=== PATIENT | male | born 1945 | race Two or more races ===

== ENCOUNTER → 2017-07-05 14:24 | Outpatient (CLI) | payer MEDICARE, OTHER, SELFPAY | PROVIDERS: Visit Provider Dermatology | DX: L98.499 Non-pressure chronic ulcer of skin of other sites with unspecified severity (principal); L90.6 Striae atrophicae | CPT/HCPCS: 87070; 87077; 87186; 87205 ==

== ENCOUNTER 2017-08-10 12:15 | Outpatient (RCR) | payer MEDICARE, OTHER, SELFPAY ==
[2017-07-13 12:52] VITALS: BP 130/69; PULSE 111; RESP 18; TEMP 36.2; BMI 42.6
[2017-07-13 14:54] LABS: Hematocrit 40.7 % (40-54); Mean Corp Hgb Conc 31.9 g/gl (32-36); Mean Corpuscular Hgb 29.3 pg (27.0-32.0); Mean Corpuscular Volume 91.7 fL (80-94); Mean Platelet Vol. 8.9 fl (6.2-12.0); Platelet Count 188 K/mm3 (150-450); RBC Distribution Width CV 15.7 % (11.6-14.6); RBC Distribution Width SD 52.7 fl (35.1-43.9); Red Blood Count 4.44 M/mm3 (4.6-6.2); White Blood Count 10.2 K/mm3 (4.4-11.0)
[2017-07-13 14:55] LABS: Scan Indicated on CBC? Y/N NO
[2017-07-13 15:00] LABS: Erythrocyte Sedimentation Rate 34 mm/hr (0-20)
[2017-07-13 15:43] LABS: Hemoglobin A1c 7.9 % (4.2-6.3)
[2017-07-13 16:56] LABS: ALB/GLOB Ratio 0.8 RATIO (0.9-2.4); AST(SGOT) 25 U/L (15-37); Alanine Aminotransfer ALT/SGPT 43 U/L (16-61); Albumin, Serum 3.7 g/dL (3.2-5.0); Alkaline Phosphatase 63 U/L (45-117); Anion Gap 4 (5-15); BUN 31 mg/dL (7-18); BUN/Creat Ratio 17.8 RATIO (10-20); Calcium,Total 9.5 mg/dL (8.5-10.1); Chloride 105 mmol/L (98-107); Creatinine, Serum 1.74 mg/dL (0.70-1.30); EST Glomerular Filtration Rate 41 mL/min (>60); Est Glom Filt Rate - Afr Amer 50 mL/min (>60); Estimated Creatinine Clearance 45.27 ml/min; Globulin 4.4 g/dL (2.2-4.2); Glucose 107 mg/dL (74-106); Potassium 4.2 mmol/L (3.5-5.1); Prealbumin 30.3 mg/dL (20.0-40.0); Protein, Total 8.1 g/dL (6.4-8.2); Sodium Level 138 mmol/L (136-145)
--- NOTE | 2017-07-13 19:12 | PCM.WC.HP ---
(1) Intertriginous dermatitis associated with moisture Status: Acute Current Visit: Yes Code(s): L30.4 - Erythema intertrigo (2) Type 2 diabetes mellitus Status: Acute Current Visit: Yes Code(s): E11.9 - Type 2 diabetes mellitus without complications (3) Morbid obesity Status: Acute Current Visit: Yes Code(s): E66.01 - Morbid (severe) obesity due to excess calories (4) Skin ulcer of abdominal wall with fat layer exposed Status: Acute Current Visit: Yes Code(s): L98.492 - Non-pressure chronic ulcer of skin of other sites with fat layer exposed History of Present Illness Date of Service: 07/13/17 Chief Complaint: Abdominal wall ulcers History of Wound: Mr. Moura is a 71yo with past medical history as stated above who was referred to the wound center by his fudger due to nonhealing abdominal wound/ulcers. Initial episode was said to be about 18 months ago and he has progressively had recurrent ulcers and some episodes of cellulitis. He has been applying cortisone cream and sprays to the area as recommended however no significant improvement. There is significant tenderness around the ulcers. He denies any discharge. Also has a sense of the most prominent between the abdominal folds. He feels well otherwise and denies chills, fever, loss of appetite, nausea, vomiting or change in his bowel habit. Past Medical History Allergies/Adverse Reactions: Allergies warfarin [From Coumadin] Allergy (Verified 07/13/17 13:05) Other Home Medications: Ambulatory Orders Medication Instructions Recorded Aspirin 81 mg PO DAILY 07/13/17 Atorvastatin Calcium 40 mg PO DAILY 07/13/17 Calcium Carbonate/Vitamin D3 4 each PO DAILY 07/13/17 [Calcium 500 mg Chewable Tablet] Cholecalciferol (Vitamin D3) 6,000 unit PO DAILY 07/13/17 [D3-2000] Cilostazol 100 mg PO BID 07/13/17 Duloxetine HCl 30 mg PO DAILY 07/13/17 Fenofibrate [Tricor] 145 mg PO DAILY 07/13/17 Iron,Carbonyl [Iron Chews] 65 mg PO BID 07/13/17 Isosorbide Mononitrate [Imdur] 30 mg PO DAILY 07/13/17 Levothyroxine [Synthroid] 100 mcg PO DAILY 07/13/17 Lisinopril [Prinivil] 10 mg PO DAILY 07/13/17 M-17/Nettle/Pumpk/Saw Palmet 3 each PO DAILY 07/13/17 [Prostate Therapy Softgel] Magnesium Oxide [Magnesium] 1,500 mg PO DAILY 07/13/17 Multivitamin [Multiple Vitamins] 1 each PO DAILY 07/13/17 Pantoprazole Sodium [Protonix] 40 mg PO DAILY 07/13/17 Triamcinolone 0.1% Cream [Kenalog] 1 applic TOPICAL QODAY 07/13/17 Vit B12/Levomefolate/Vit B6/B2 1 each PO QWEEK 07/13/17 [l-Methyl-Mc Tablet] Smoking Status: Never smoker Review of Systems Constitutional: Denies: Anorexia, Chills, Fever Eyes: Denies: Blurred vision, Redness HEENT: Denies: Difficulty Swallowing, Head Aches Cardiovascular: Denies: Chest Pain, Chest Pressure, Chest Tightness, Orthopnea Respiratory: Denies: Cough, Hemoptysis Gastrointestinal: Denies: Abdominal Pain, Hematemesis, Vomiting Skin: Denies: Dryness, Jaundice Neurological: Denies: Balance problems - Physical Exam Vital Signs Temp Pulse Resp BP 97.1 F L 111 H 18 130/69 H 07/13/17 12:52 07/13/17 12:52 07/13/17 12:52 07/13/17 12:52 General: Alert, Oriented x3, Cooperative, No apparent distress HEENT: Atraumatic, Normocephalic Oral: Moist Mucosa Neck: Supple Lungs: Normal air movement Cardiovascular: Regular rate Abdomen: Soft, Obese, Tender Extremities: No cyanosis, Edema Skin: Ulcer/ Wound Wound Measurements and Assessment WC - Nurse 1 - General Ulcer Measurement Start: 07/13/17 11:58 Freq: Status: Active Protocol: Activity Type Activity Date Activity User E-Sign Co-Sign Detail Recorded Client Recorded Date Recorded By Document 07/13/17 12:52 RB [id number] 07/13/17 13:02 RB 07/13/17 12:52 Wound Center Nurse 1 [Ulcer Assessment] 5. R abd fold inferior -Combined with other wound No -Current Size (cm) - Length 1.6 -Current Size (cm) - Width 1.6 -Current Size (cm) - Depth 0.1 -Total Square Cm 2.56 -Photo Taken Yes -Tunneling No -Undermining/Tunneling No -Circular Undermining No -Classification - Thickness Full Thickness without Exposed Support Structure -Exudate Amt Small (1-33%) -Exudate Type Serosanguineous -Wound Margin Distinct, Outline Attached -Granulation Amt Large (67-100%) -Granulation Quality Laurium Red -Slough/Fibrin Yes -Necrosis Amt Small (1-33%) -Necrotic Tissue Type Adherent Slough -Structure Exposed N/A -Texture (Nesha-wound Skin Appearance) Assessed Friable -Moisture (Nesha-wound Skin Appearance Assessed ) -Color (Nesha-wound Skin Appearance) Assessed -Temperature (Nesha-wound Skin No Abnormality Appearance) (Pt Warm) -Tenderness on Palpation (Nesha-wound No Skin Appearance) -Ulcer Cleansing Rinsed/ Irrigated with Saline -Foul Odor after Cleansing No -Anesthetic Used 4% Lidocaine Solution 4. R abd fold superior -Combined with other wound No -Current Size (cm) - Length 0.8 -Current Size (cm) - Width 1.1 -Current Size (cm) - Depth 0.3 -Total Square Cm 0.88 -Photo Taken Yes -Tunneling No -Undermining/Tunneling No -Circular Undermining No -Classification - Thickness Full Thickness without Exposed Support Structure -Exudate Amt Small (1-33%) -Exudate Type Serosanguineous -Wound Margin Distinct, Outline Attached -Granulation Amt Large (67-100%) -Granulation Quality Laurium Red -Slough/Fibrin Yes -Necrosis Amt Small (1-33%) -Necrotic Tissue Type Adherent Slough -Structure Exposed N/A -Texture (Nesha-wound Skin Appearance) Assessed Friable -Moisture (Nesha-wound Skin Appearance Assessed ) -Color (Nesha-wound Skin Appearance) Assessed -Temperature (Nesha-wound Skin No Abnormality Appearance) (Pt Warm) -Tenderness on Palpation (Nesha-wound No Skin Appearance) -Ulcer Cleansing Rinsed/ Irrigated with Saline -Foul Odor after Cleansing No -Anesthetic Used 4% Lidocaine Solution 3. R lower abd -Combined with other wound No -Current Size (cm) - Length 2.7 -Current Size (cm) - Width 4.5 -Current Size (cm) - Depth 0.2 -Total Square Cm 12.15 -Photo Taken Yes -Tunneling No -Undermining/Tunneling No -Circular Undermining No -Classification - Thickness Full Thickness without Exposed Support Structure -Exudate Amt Small (1-33%) -Exudate Type Serosanguineous -Wound Margin Distinct, Outline Attached -Granulation Amt Large (67-100%) -Granulation Quality Laurium Red -Slough/Fibrin Yes -Necrosis Amt Small (1-33%) -Necrotic Tissue Type Adherent Slough -Structure Exposed N/A -Texture (Nesha-wound Skin Appearance) Assessed Friable -Moisture (Nesha-wound Skin Appearance Assessed ) -Color (Nesha-wound Skin Appearance) Assessed -Temperature (Nesha-wound Skin No Abnormality Appearance) (Pt Warm) -Tenderness on Palpation (Nesha-wound No Skin Appearance) -Ulcer Cleansing Rinsed/ Irrigated with Saline -Foul Odor after Cleansing No -Anesthetic Used 4% Lidocaine Solution 2. L abd fold -Combined with other wound No -Current Size (cm) - Length 0.2 -Current Size (cm) - Width 0.9 -Current Size (cm) - Depth 0.1 -Total Square Cm 0.18 -Photo Taken Yes -Tunneling No -Undermining/Tunneling No -Circular Undermining No -Classification - Thickness Full Thickness without Exposed Support Structure -Exudate Amt Small (1-33%) -Exudate Type Serosanguineous -Wound Margin Distinct, Outline Attached -Granulation Amt Large (67-100%) -Granulation Quality Laurium -Slough/Fibrin Yes -Necrosis Amt Small (1-33%) -Necrotic Tissue Type Adherent Slough -Structure Exposed N/A -Texture (Nesha-wound Skin Appearance) Assessed -Moisture (Nesha-wound Skin Appearance Assessed ) -Color (Nesha-wound Skin Appearance) Assessed -Temperature (Nesha-wound Skin No Abnormality Appearance) (Pt Warm) -Tenderness on Palpation (Nesha-wound No Skin Appearance) -Ulcer Cleansing Rinsed/ Irrigated with Saline -Foul Odor after Cleansing No -Anesthetic Used 4% Lidocaine Solution 1. L lower abd -Combined with other wound No -Current Size (cm) - Length 1.7 -Current Size (cm) - Width 3 -Current Size (cm) - Depth 0.2 -Total Square Cm 5.1 -Photo Taken Yes -Tunneling No -Undermining/Tunneling No -Circular Undermining No -Classification - Thickness Full Thickness without Exposed Support Structure -Exudate Amt Small (1-33%) -Exudate Type Serosanguineous -Wound Margin Distinct, Outline Attached -Granulation Amt Large (67-100%) -Granulation Quality Laurium -Slough/Fibrin Yes -Necrosis Amt Small (1-33%) -Necrotic Tissue Type Adherent Slough -Structure Exposed N/A -Texture (Nesha-wound Skin Appearance) Assessed Friable -Moisture (Nesha-wound Skin Appearance Assessed ) -Color (Nesha-wound Skin Appearance) Assessed -Temperature (Nesha-wound Skin No Abnormality Appearance) (Pt Warm) -Tenderness on Palpation (Nesha-wound No Skin Appearance) -Ulcer Cleansing Rinsed/ Irrigated with Saline -Foul Odor after Cleansing No -Anesthetic Used 4% Lidocaine Solution Musculoskeletal: No Muscle Wasting Neurological: Cranial nerves II-XII grossly intact Psych/Mental Status: Normal Affect Debridement Note Wound debrided: Right abdomen ( Superior ) Wound Grade/Stage: Stage II Type of Debridement: Excisional debridement Anesthesia Used: 4% Lidocaine Solution Depth: Down to and including healthy tissue, in the subcutaneous layer Percentage of wound debrided: 100 Instrument Used: 5mm curette Tissue Removed: Slough and devitalized tissue Severity: Fat Layer Exposed Amount of bleeding with debridement: Mild Bleeding Controlled with: Pressure Patient tolerated procedure well - Additional Wound Wound debrided: Right abdominal fold ( Lateral ) Wound Grade/Stage: Stage II Type of Debridement: Excisional debridement Anesthesia Used: 4% Lidocaine Solution Depth: Down to and including healthy tissue, in the subcutaneous layer Percentage of wound debrided: 100 Instrument Used: 5mm curette Tissue Removed: Slough and devitalized tissue Severity: Fat Layer Exposed Amount of bleeding with debridement: Mild Bleeding Controlled with: Pressure Patient tolerated procedure: Patient tolerated procedure well - Additional Wound Wound debrided: Right abdominal fold medial Wound Grade/Stage: Stage II Type of Debridement: Excisional debridement Anesthesia Used: 4% Lidocaine Solution Depth: Down to and including healthy tissue, in the subcutaneous layer Percentage of wound debrided: 100 Instrument Used: 5mm curette Tissue Removed: Slough and devitalized tissue Severity: Fat Layer Exposed Amount of bleeding with debridement: Mild Bleeding Controlled with: Pressure Patient tolerated procedure: Patient tolerated procedure well - Additional Wound Wound debrided: Left abdomen wall ( superior ) Wound Grade/Stage: Stage II Type of Debridement: Excisional debridement Anesthesia Used: 4% Lidocaine Solution Depth: Down to and including healthy tissue, in the subcutaneous layer Percentage of wound debrided: 100 Instrument Used: 5mm curette Tissue Removed: SLough and devitalized tissue Severity: Fat Layer Exposed Amount of bleeding with debridement: Mild Bleeding Controlled with: Pressure Patient tolerated procedure: Patient tolerated procedure well - Additional Wound Wound debrided: Left abdominal fold Wound Grade/Stage: Stage II Type of Debridement: Excisional debridement Anesthesia Used: 4% Lidocaine Solution Depth: Down to and including healthy tissue, in the subcutaneous layer Percentage of wound debrided: 100 Instrument Used: 5mm curette Tissue Removed: Slough and devitalized tissue Severity: Fat Layer Exposed Amount of bleeding with debridement: Mild Bleeding Controlled with: Pressure Patient tolerated procedure: Patient tolerated procedure well Assessment/Plan Active Problems Intertriginous dermatitis associated with moisture (Acute) Type 2 diabetes mellitus (Acute) Morbid obesity (Acute) Skin ulcer of abdominal wall with fat layer exposed (Acute) Assessment: As stated above Plan: Mr Moura presents with 5 abdominal ulcers said to have been ongoing 18 months. Has been seen by his fudger and primary care physician without any significant improvement. Referred to the wound center by his fudger. Currently applying cortisone cream. I believe the origin of these ulcers are primarily fungal in nature due to his current body habitus. Debridement of all ulcers were done as documented above. Procedure was well-tolerated. Labs ordered. Patient with very significant tenderness around the ulcers and also areas of dermatitis intertrigo noted. Will start on fluconazole 200 mg daily, doxycycline 100 mg twice daily and Keflex 500 mg twice daily. Nystatin powder to skin surface/skin fold. Advised to avoid the ulcerated areas. Fibracol with Adaptic over top to all ulcerated areas. Optimal blood sugar control. Increase protein supplements/dietary intake. Follow-up in 1 week. This note was generated with [employer] dictation software. It may contain incorrect words, spelling, and punctuation that were not noted in checking the note before signing.
--- NOTE | 2017-07-13 19:25 | HP.PCM_ITS ---
(1) Intertriginous dermatitis associated with moisture Status: Acute Current Visit: Yes Code(s): L30.4 - Erythema intertrigo (2) Type 2 diabetes mellitus Status: Acute Current Visit: Yes Code(s): E11.9 - Type 2 diabetes mellitus without complications (3) Morbid obesity Status: Acute Current Visit: Yes Code(s): E66.01 - Morbid (severe) obesity due to excess calories (4) Skin ulcer of abdominal wall with fat layer exposed Status: Acute Current Visit: Yes Code(s): L98.492 - Non-pressure chronic ulcer of skin of other sites with fat layer exposed History of Present Illness Date of Service: 07/13/17 Chief Complaint: Abdominal wall ulcers History of Wound: Mr. 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 Initial episode was said to be about 18 months ago and he has progressively had recurrent ulcers and some episodes of cellulitis. He has been applying cortisone cream and sprays to the area as recommended however no significant improvement. There is significant tenderness around the ulcers. He denies any discharge. Also has a sense of the most prominent between the abdominal folds. He feels well otherwise and denies chills, fever, loss of appetite, nausea, vomiting or change in his bowel habit. Past Medical History Allergies/Adverse Reactions: Allergies warfarin [From Coumadin] Allergy (Verified 07/13/17 13:05) Other Home Medications: Ambulatory Orders Medication Instructions Recorded Aspirin 81 mg PO DAILY 07/13/17 Atorvastatin Calcium 40 mg PO DAILY 07/13/17 Calcium Carbonate/Vitamin D3 4 each PO DAILY 07/13/17 [Calcium 500 mg Chewable Tablet] Cholecalciferol (Vitamin D3) 6,000 unit PO DAILY 07/13/17 [D3-2000] Cilostazol 100 mg PO BID 07/13/17 Duloxetine HCl 30 mg PO DAILY 07/13/17 Fenofibrate [Tricor] 145 mg PO DAILY 07/13/17 Iron,Carbonyl [Iron Chews] 65 mg PO BID 07/13/17 Isosorbide Mononitrate [Imdur] 30 mg PO DAILY 07/13/17 Levothyroxine [Synthroid] 100 mcg PO DAILY 07/13/17 Lisinopril [Prinivil] 10 mg PO DAILY 07/13/17 M-17/Nettle/Pumpk/Saw Palmet 3 each PO DAILY 07/13/17 [Prostate Therapy Softgel] Magnesium Oxide [Magnesium] 1,500 mg PO DAILY 07/13/17 Multivitamin [Multiple Vitamins] 1 each PO DAILY 07/13/17 Pantoprazole Sodium [Protonix] 40 mg PO DAILY 07/13/17 Triamcinolone 0.1% Cream [Kenalog] 1 applic TOPICAL QODAY 07/13/17 Vit B12/Levomefolate/Vit B6/B2 1 each PO QWEEK 07/13/17 [l-Methyl-Mc Tablet] Smoking Status: Never smoker Review of Systems Constitutional: Denies: Anorexia, Chills, Fever Eyes: Denies: Blurred vision, Redness HEENT: Denies: Difficulty Swallowing, Head Aches Cardiovascular: Denies: Chest Pain, Chest Pressure, Chest Tightness, Orthopnea Respiratory: Denies: Cough, Hemoptysis Gastrointestinal: Denies: Abdominal Pain, Hematemesis, Vomiting Skin: Denies: Dryness, Jaundice Neurological: Denies: Balance problems - Physical Exam Vital Signs Temp Pulse Resp BP 97.1 F L 111 H 18 130/69 H 07/13/17 12:52 07/13/17 12:52 07/13/17 12:52 07/13/17 12:52 General: Alert, Oriented x3, Cooperative, No apparent distress HEENT: Atraumatic, Normocephalic Oral: Moist Mucosa Neck: Supple Lungs: Normal air movement Cardiovascular: Regular rate Abdomen: Soft, Obese, Tender Extremities: No cyanosis, Edema Skin: Ulcer/ Wound Wound Measurements and Assessment WC - Nurse 1 - General Ulcer Measurement Start: 07/13/17 11:58 Freq: Status: Active Protocol: Activity Type Activity Date Activity User E-Sign Co-Sign Detail Recorded Client Recorded Date Recorded By Document 07/13/17 12:52 RB [id number] 07/13/17 13:02 RB 07/13/17 12:52 Wound Center Nurse 1 [Ulcer Assessment] 5. R abd fold inferior -Combined with other wound No -Current Size (cm) - Length 1.6 -Current Size (cm) - Width 1.6 -Current Size (cm) - Depth 0.1 -Total Square Cm 2.56 -Photo Taken Yes -Tunneling No -Undermining/Tunneling No -Circular Undermining No -Classification - Thickness Full Thickness without Exposed Support Structure -Exudate Amt Small (1-33%) -Exudate Type Serosanguineous -Wound Margin Distinct, Outline Attached -Granulation Amt Large (67-100%) -Granulation Quality [place] Red -Slough/Fibrin Yes -Necrosis Amt Small (1-33%) -Necrotic Tissue Type Adherent Slough -Structure Exposed N/A -Texture (Nesha-wound Skin Appearance) Assessed Friable -Moisture (Nesha-wound Skin Appearance Assessed ) -Color (Nesha-wound Skin Appearance) Assessed -Temperature (Nesha-wound Skin No Abnormality Appearance) (Pt Warm) -Tenderness on Palpation (Nesha-wound No Skin Appearance) -Ulcer Cleansing Rinsed/ Irrigated with Saline -Foul Odor after Cleansing No -Anesthetic Used 4% Lidocaine Solution 4. R abd fold superior -Combined with other wound No -Current Size (cm) - Length 0.8 -Current Size (cm) - Width 1.1 -Current Size (cm) - Depth 0.3 -Total Square Cm 0.88 -Photo Taken Yes -Tunneling No -Undermining/Tunneling No -Circular Undermining No -Classification - Thickness Full Thickness without Exposed Support Structure -Exudate Amt Small (1-33%) -Exudate Type Serosanguineous -Wound Margin Distinct, Outline Attached -Granulation Amt Large (67-100%) -Granulation Quality [place] Red -Slough/Fibrin Yes -Necrosis Amt Small (1-33%) -Necrotic Tissue Type Adherent Slough -Structure Exposed N/A -Texture (Nesha-wound Skin Appearance) Assessed Friable -Moisture (Nesha-wound Skin Appearance Assessed ) -Color (Nesha-wound Skin Appearance) Assessed -Temperature (Nesha-wound Skin No Abnormality Appearance) (Pt Warm) -Tenderness on Palpation (Nesha-wound No Skin Appearance) -Ulcer Cleansing Rinsed/ Irrigated with Saline -Foul Odor after Cleansing No -Anesthetic Used 4% Lidocaine Solution 3. R lower abd -Combined with other wound No -Current Size (cm) - Length 2.7 -Current Size (cm) - Width 4.5 -Current Size (cm) - Depth 0.2 -Total Square Cm 12.15 -Photo Taken Yes -Tunneling No -Undermining/Tunneling No -Circular Undermining No -Classification - Thickness Full Thickness without Exposed Support Structure -Exudate Amt Small (1-33%) -Exudate Type Serosanguineous -Wound Margin Distinct, Outline Attached -Granulation Amt Large (67-100%) -Granulation Quality [place] Red -Slough/Fibrin Yes -Necrosis Amt Small (1-33%) -Necrotic Tissue Type Adherent Slough -Structure Exposed N/A -Texture (Nesha-wound Skin Appearance) Assessed Friable -Moisture (Nesha-wound Skin Appearance Assessed ) -Color (Nesha-wound Skin Appearance) Assessed -Temperature (Nesha-wound Skin No Abnormality Appearance) (Pt Warm) -Tenderness on Palpation (Nesha-wound No Skin Appearance) -Ulcer Cleansing Rinsed/ Irrigated with Saline -Foul Odor after Cleansing No -Anesthetic Used 4% Lidocaine Solution 2. L abd fold -Combined with other wound No -Current Size (cm) - Length 0.2 -Current Size (cm) - Width 0.9 -Current Size (cm) - Depth 0.1 -Total Square Cm 0.18 -Photo Taken Yes -Tunneling No -Undermining/Tunneling No -Circular Undermining No -Classification - Thickness Full Thickness without Exposed Support Structure -Exudate Amt Small (1-33%) -Exudate Type Serosanguineous -Wound Margin Distinct, Outline Attached -Granulation Amt Large (67-100%) -Granulation Quality [place] -Slough/Fibrin Yes -Necrosis Amt Small (1-33%) -Necrotic Tissue Type Adherent Slough -Structure Exposed N/A -Texture (Nesha-wound Skin Appearance) Assessed -Moisture (Nesha-wound Skin Appearance Assessed ) -Color (Nesha-wound Skin Appearance) Assessed -Temperature (Nesha-wound Skin No Abnormality Appearance) (Pt Warm) -Tenderness on Palpation (Nesha-wound No Skin Appearance) -Ulcer Cleansing Rinsed/ Irrigated with Saline -Foul Odor after Cleansing No -Anesthetic Used 4% Lidocaine Solution 1. L lower abd -Combined with other wound No -Current Size (cm) - Length 1.7 -Current Size (cm) - Width 3 -Current Size (cm) - Depth 0.2 -Total Square Cm 5.1 -Photo Taken Yes -Tunneling No -Undermining/Tunneling No -Circular Undermining No -Classification - Thickness Full Thickness without Exposed Support Structure -Exudate Amt Small (1-33%) -Exudate Type Serosanguineous -Wound Margin Distinct, Outline Attached -Granulation Amt Large (67-100%) -Granulation Quality [place] -Slough/Fibrin Yes -Necrosis Amt Small (1-33%) -Necrotic Tissue Type Adherent Slough -Structure Exposed N/A -Texture (Nesha-wound Skin Appearance) Assessed Friable -Moisture (Nesha-wound Skin Appearance Assessed ) -Color (Nesha-wound Skin Appearance) Assessed -Temperature (Nesha-wound Skin No Abnormality Appearance) (Pt Warm) -Tenderness on Palpation (Nesha-wound No Skin Appearance) -Ulcer Cleansing Rinsed/ Irrigated with Saline -Foul Odor after Cleansing No -Anesthetic Used 4% Lidocaine Solution Musculoskeletal: No Muscle Wasting Neurological: Cranial nerves II-XII grossly intact Psych/Mental Status: Normal Affect Debridement Note Wound debrided: Right abdomen ( Superior ) Wound Grade/Stage: Stage II Type of Debridement: Excisional debridement Anesthesia Used: 4% Lidocaine Solution Depth: Down to and including healthy tissue, in the subcutaneous layer Percentage of wound debrided: 100 Instrument Used: 5mm curette Tissue Removed: Slough and devitalized tissue Severity: Fat Layer Exposed Amount of bleeding with debridement: Mild Bleeding Controlled with: Pressure Patient tolerated procedure well - Additional Wound Wound debrided: Right abdominal fold ( Lateral ) Wound Grade/Stage: Stage II Type of Debridement: Excisional debridement Anesthesia Used: 4% Lidocaine Solution Depth: Down to and including healthy tissue, in the subcutaneous layer Percentage of wound debrided: 100 Instrument Used: 5mm curette Tissue Removed: Slough and devitalized tissue Severity: Fat Layer Exposed Amount of bleeding with debridement: Mild Bleeding Controlled with: Pressure Patient tolerated procedure: Patient tolerated procedure well - Additional Wound Wound debrided: Right abdominal fold medial Wound Grade/Stage: Stage II Type of Debridement: Excisional debridement Anesthesia Used: 4% Lidocaine Solution Depth: Down to and including healthy tissue, in the subcutaneous layer Percentage of wound debrided: 100 Instrument Used: 5mm curette Tissue Removed: Slough and devitalized tissue Severity: Fat Layer Exposed Amount of bleeding with debridement: Mild Bleeding Controlled with: Pressure Patient tolerated procedure: Patient tolerated procedure well - Additional Wound Wound debrided: Left abdomen wall ( superior ) Wound Grade/Stage: Stage II Type of Debridement: Excisional debridement Anesthesia Used: 4% Lidocaine Solution Depth: Down to and including healthy tissue, in the subcutaneous layer Percentage of wound debrided: 100 Instrument Used: 5mm curette Tissue Removed: SLough and devitalized tissue Severity: Fat Layer Exposed Amount of bleeding with debridement: Mild Bleeding Controlled with: Pressure Patient tolerated procedure: Patient tolerated procedure well - Additional Wound Wound debrided: Left abdominal fold Wound Grade/Stage: Stage II Type of Debridement: Excisional debridement Anesthesia Used: 4% Lidocaine Solution Depth: Down to and including healthy tissue, in the subcutaneous layer Percentage of wound debrided: 100 Instrument Used: 5mm curette Tissue Removed: Slough and devitalized tissue Severity: Fat Layer Exposed Amount of bleeding with debridement: Mild Bleeding Controlled with: Pressure Patient tolerated procedure: Patient tolerated procedure well Assessment/Plan Active Problems Intertriginous dermatitis associated with moisture (Acute) Type 2 diabetes mellitus (Acute) Morbid obesity (Acute) Skin ulcer of abdominal wall with fat layer exposed (Acute) Assessment: As stated above Plan: Mr Moura presents with 5 abdominal ulcers said to have been ongoing 18 months. Has been seen by his car installations supervisor and primary care physician without any significant improvement. Referred to the wound center by his car installations supervisor. Currently applying cortisone cream. I believe the origin of these ulcers are primarily fungal in nature due to his current body habitus. Debridement of all ulcers were done as documented above. Procedure was well- tolerated. Labs ordered. Patient with very significant tenderness around the ulcers and also areas of dermatitis intertrigo noted. Will start on fluconazole 200 mg daily, doxycycline 100 mg twice daily and Keflex 500 mg twice daily. Nystatin powder to skin surface/skin fold. Advised to avoid the ulcerated areas. Fibracol with Adaptic over top to all ulcerated areas. Optimal blood sugar control. Increase protein supplements/dietary intake. Follow-up in 1 week. This note was generated with [employer] dictation software. It may contain incorrect words, spelling, and punctuation that were not noted in checking the note before signing.
[2017-07-20 11:39] VITALS: BP 147/82; PULSE 102; RESP 18; TEMP 36.2; BMI 42.6
--- NOTE | 2017-07-20 16:42 | PCM.WC.PN ---
(1) Intertriginous dermatitis associated with moisture Status: Acute Current Visit: Yes Code(s): L30.4 - Erythema intertrigo (2) Type 2 diabetes mellitus Status: Acute Current Visit: Yes Code(s): E11.9 - Type 2 diabetes mellitus without complications (3) Morbid obesity Status: Acute Current Visit: Yes Code(s): E66.01 - Morbid (severe) obesity due to excess calories (4) Skin ulcer of abdominal wall with fat layer exposed Status: Acute Current Visit: Yes Code(s): L98.492 - Non-pressure chronic ulcer of skin of other sites with fat layer exposed Type of Wound Date of Service: 07/20/17 Chief Complaint: Abdominal wall ulcers History of Wound: Mr. 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 Initial episode was said to be about 18 months ago and he has progressively had recurrent ulcers and some episodes of cellulitis. He has been applying cortisone cream and sprays to the area as recommended however no significant improvement. There is significant tenderness around the ulcers. He denies any discharge. Also has a sense of the most prominent between the abdominal folds. He feels well otherwise and denies chills, fever, loss of appetite, nausea, vomiting or change in his bowel habit. Progress of Wound: Improving. - Physical Exam Vital Signs Temp Pulse Resp BP 97.1 F L 102 H 18 147/82 H 07/20/17 11:39 07/20/17 11:39 07/20/17 11:39 07/20/17 11:39 General: Alert, Oriented x3, Cooperative, No apparent distress HEENT: Atraumatic, Normocephalic Oral: Moist Mucosa Neck: Supple Lungs: Normal air movement Cardiovascular: Tachycardic Abdomen: Soft, Non Tender, Obese Extremities: No cyanosis Skin: Ulcer/ Wound Wound Measurements and Assessment WC - Nurse 1 - General Ulcer Measurement Start: 07/13/17 11:58 Freq: Status: Active Protocol: Activity Type Activity Date Activity User E-Sign Co-Sign Detail Recorded Client Recorded Date Recorded By Document 07/20/17 11:39 TN [id number] 07/20/17 11:57 TN 07/20/17 11:39 Wound Center Nurse 1 [Ulcer Assessment] #5 RT LATERAL ABDOMINAL FOLD -Combined with other wound No -Current Size (cm) - Length 0.6 -Current Size (cm) - Width 1.4 -Current Size (cm) - Depth 0.1 -Total Square Cm 0.84 -Photo Taken No -Epithelialization Large 67-100% -Tunneling No -Undermining/Tunneling No -Circular Undermining No -Classification - Thickness Full Thickness without Exposed Support Structure -Change in Wound Grade/Stage No Query Text:If change please identify the Stage/Grade in the comment (ie. S2 G3) -Exudate Amt Medium (34-66%) -Exudate Type Serosanguineous -Wound Margin Distinct, Outline Attached -Granulation Amt Large (67-100%) -Granulation Quality Hyper- granulation -Slough/Fibrin No -Necrosis Amt Small (1-33%) -Necrotic Tissue Type Adherent Slough -Structure Exposed None/Limited to Skin Breakdown -Texture (Nesha-wound Skin Appearance) Assessed Scarring -Moisture (Nesha-wound Skin Appearance No Abnormality ) Assessed -Color (Nesha-wound Skin Appearance) No Abnormality Assessed -Temperature (Nesha-wound Skin No Abnormality Appearance) (Pt Warm) -Tenderness on Palpation (Nesha-wound No Skin Appearance) -Ulcer Cleansing Rinsed/ Irrigated with Saline -Foul Odor after Cleansing No -Anesthetic Used 4% Lidocaine Solution #4 RT MEDIAL ABDOMINAL FOLD -Combined with other wound No -Current Size (cm) - Length 0.8 -Current Size (cm) - Width 0.9 -Current Size (cm) - Depth 0.2 -Total Square Cm 0.72 -Photo Taken No -Epithelialization Small 1-33% -Tunneling No -Undermining/Tunneling No -Circular Undermining No -Classification - Thickness Full Thickness without Exposed Support Structure -Change in Wound Grade/Stage No Query Text:If change please identify the Stage/Grade in the comment (ie. S2 G3) -Exudate Amt Medium (34-66%) -Exudate Type Serosanguineous -Wound Margin Distinct, Outline Attached -Granulation Amt Large (67-100%) -Granulation Quality Red -Necrosis Amt Small (1-33%) -Necrotic Tissue Type Adherent Slough -Structure Exposed None/Limited to Skin Breakdown -Texture (Nesha-wound Skin Appearance) Assessed Scarring -Moisture (Nesha-wound Skin Appearance No Abnormality ) Assessed -Color (Nesha-wound Skin Appearance) Assessed Erythema -Temperature (Nesha-wound Skin No Abnormality Appearance) (Pt Warm) -Tenderness on Palpation (Nesha-wound No Skin Appearance) -Ulcer Cleansing Rinsed/ Irrigated with Saline -Foul Odor after Cleansing No -Anesthetic Used 4% Lidocaine Solution #3 RLQ -Combined with other wound No -Current Size (cm) - Length 2.2 -Current Size (cm) - Width 4.6 -Current Size (cm) - Depth 0.1 -Total Square Cm 10.12 -Photo Taken No -Epithelialization Small 1-33% -Tunneling No -Undermining/Tunneling No -Circular Undermining No -Classification - Thickness Full Thickness without Exposed Support Structure -Change in Wound Grade/Stage No Query Text:If change please identify the Stage/Grade in the comment (ie. S2 G3) -Exudate Amt Medium (34-66%) -Exudate Type Serosanguineous -Wound Margin Distinct, Outline Attached -Granulation Amt Medium (34-66%) -Granulation Quality Red -Slough/Fibrin Yes -Necrosis Amt Small (1-33%) -Necrotic Tissue Type Adherent Slough -Structure Exposed None/Limited to Skin Breakdown -Texture (Nesha-wound Skin Appearance) Assessed Scarring -Moisture (Nesha-wound Skin Appearance No Abnormality ) Assessed -Color (Nesha-wound Skin Appearance) Assessed Erythema -Temperature (Nesha-wound Skin No Abnormality Appearance) (Pt Warm) -Tenderness on Palpation (Nesha-wound No Skin Appearance) -Ulcer Cleansing Rinsed/ Irrigated with Saline -Foul Odor after Cleansing No -Anesthetic Used 4% Lidocaine Solution #2 LEFT ABDOMINAL FOLD -Combined with other wound No -Current Size (cm) - Length 0.1 -Current Size (cm) - Width 0.1 -Current Size (cm) - Depth 0.1 -Total Square Cm 0.01 -Photo Taken No -Epithelialization None Present -Tunneling No -Undermining/Tunneling No -Circular Undermining No -Classification - Thickness Full Thickness without Exposed Support Structure -Change in Wound Grade/Stage No Query Text:If change please identify the Stage/Grade in the comment (ie. S2 G3) -Exudate Amt None Present (0 %) -Granulation Amt None Present (0 %) -Necrosis Amt None Present (0 %) -Texture (Nesha-wound Skin Appearance) No Abnormality Assessed -Moisture (Nesha-wound Skin Appearance No Abnormality ) Assessed -Color (Nesha-wound Skin Appearance) No Abnormality Not Assessed -Temperature (Nesha-wound Skin No Abnormality Appearance) (Pt Warm) -Tenderness on Palpation (Nesha-wound No Skin Appearance) -Ulcer Cleansing Rinsed/ Irrigated with Saline -Anesthetic Used 4% Lidocaine Solution #1 LLQ -Combined with other wound No -Current Size (cm) - Length 1.6 -Current Size (cm) - Width 2.5 -Current Size (cm) - Depth 0.2 -Total Square Cm 4.00 -Photo Taken No -Epithelialization None Present -Tunneling No -Undermining/Tunneling Yes -Undermining/Tunneling Starts (O' 7 clock) -Undermining/Tunneling Ends (O'clock) 11 -Maximum Distance (cm) 0.3 -Circular Undermining No -Classification - Thickness Full Thickness without Exposed Support Structure -Change in Wound Grade/Stage No Query Text:If change please identify the Stage/Grade in the comment (ie. S2 G3) -Exudate Amt Large (67-100%) -Exudate Type Serosanguineous -Wound Margin Distinct, Outline Attached -Granulation Amt Large (67-100%) -Granulation Quality Red -Slough/Fibrin Yes -Necrosis Amt Small (1-33%) -Necrotic Tissue Type Adherent Slough -Structure Exposed None/Limited to Skin Breakdown -Texture (Nesha-wound Skin Appearance) No Abnormality Assessed -Moisture (Nesha-wound Skin Appearance No Abnormality ) Assessed -Color (Nesha-wound Skin Appearance) No Abnormality Assessed -Temperature (Nesha-wound Skin No Abnormality Appearance) (Pt Warm) -Tenderness on Palpation (Nesha-wound No Skin Appearance) -Ulcer Cleansing Rinsed/ Irrigated with Saline -Foul Odor after Cleansing No -Anesthetic Used 4% Lidocaine Solution [Edema Assessment] -Lower Limb Edema Present No WC - Nurse 2 - General Ulcer CM Notes Start: 07/13/17 11:58 Freq: Status: Active Protocol: Activity Type Activity Date Activity User E-Sign Co-Sign Detail Recorded Client Recorded Date Recorded By Document 07/20/17 12:53 DV [id number] 07/20/17 12:58 DV 07/20/17 12:53 Wound Center Nurse 2 [Procedure/Treatment] #5 RT LATERAL ABDOMINAL FOLD -Time 12:53 -Correct Patient Yes -Correct Side, Site, Position Yes -Correct Procedure Yes -Procedure Performed Yes -Type of Procedure Debridement -Clinical Debridement Subcutaneous -Post Debridement Size (cm) - Length 0.9 -Post Debridement Size (cm) - Width 0.5 -Post Debridement Size (cm) - Depth 0.1 -Total Square Cm 0.45 -Wound/Ulcer Outcome Not Healed #4 RT MEDIAL ABDOMINAL FOLD -Time 12:54 -Correct Patient Yes -Correct Side, Site, Position Yes -Correct Procedure Yes -Procedure Performed Yes -Type of Procedure Debridement -Clinical Debridement Subcutaneous -Post Debridement Size (cm) - Length 0.8 -Post Debridement Size (cm) - Width 0.9 -Post Debridement Size (cm) - Depth 0.2 -Total Square Cm 0.72 -Wound/Ulcer Outcome Not Healed -Ulcer Cleansing Rinsed/ Irrigated with Saline -Foul Odor after Cleansing No -Bioengineered Tissue No -Bleeding Controlled with Pressure -Treatment Response Procedure Tolerated Well #3 RLQ -Time 12:55 -Correct Patient Yes -Correct Side, Site, Position Yes -Correct Procedure Yes -Procedure Performed Yes -Type of Procedure Debridement -Clinical Debridement Subcutaneous -Post Debridement Size (cm) - Length 2.9 -Post Debridement Size (cm) - Width 4.8 -Post Debridement Size (cm) - Depth 0.1 -Total Square Cm 13.92 -Wound/Ulcer Outcome Not Healed -Ulcer Cleansing Rinsed/ Irrigated with Saline -Foul Odor after Cleansing No -Bioengineered Tissue No -Bleeding Controlled with Pressure -Treatment Response Procedure Tolerated Well #2 LEFT ABDOMINAL FOLD -Time 12:55 -Correct Patient Yes -Procedure Performed No -Post Debridement Size (cm) - Length 0 -Post Debridement Size (cm) - Width 0 -Post Debridement Size (cm) - Depth 0 -Total Square Cm 0 -Wound/Ulcer Outcome Healed- Epithelialized #1 LLQ -Time 12:56 -Correct Patient Yes -Correct Side, Site, Position Yes -Correct Procedure Yes -Procedure Performed Yes -Type of Procedure Debridement -Clinical Debridement Subcutaneous -Post Debridement Size (cm) - Length 1.9 -Post Debridement Size (cm) - Width 2.4 -Post Debridement Size (cm) - Depth 0.1 -Total Square Cm 4.56 -Wound/Ulcer Outcome Not Healed -Ulcer Cleansing Rinsed/ Irrigated with Saline -Foul Odor after Cleansing No -Bioengineered Tissue No -Bleeding Controlled with Pressure -Treatment Response Procedure Tolerated Well [See Physician Procedure note for Specifics] Pain Scale: 0-10 Numeric [Pain] -Is Patient Pain Free? Yes Musculoskeletal: No Muscle Wasting Neurological: Cranial nerves II-XII grossly intact Psych/Mental Status: Normal Affect Debridement Note Post-Debridement Measurements/Treatment WC - Nurse 2 - General Ulcer CM Notes Start: 07/13/17 11:58 Freq: Status: Active Protocol: Activity Type Activity Date Activity User E-Sign Co-Sign Detail Recorded Client Recorded Date Recorded By Document 07/13/17 13:40 DV [id number] 07/13/17 21:25 DV Document 07/20/17 12:53 DV [id number] 07/20/17 12:58 DV 07/13/17 07/20/17 13:40 12:53 Wound Center Nurse 2 #5 RT LATERAL ABDOMINAL FOLD -Time 13:40 12:53 -Correct Patient Yes Yes -Correct Side, Site, Position Yes Yes -Correct Procedure Yes Yes -Procedure Performed Yes Yes -Type of Procedure Debridement Debridement -Clinical Debridement Subcutaneous Subcutaneous -Post Debridement Size (cm) - Length 1.5 0.9 -Post Debridement Size (cm) - Width 1.5 0.5 -Post Debridement Size (cm) - Depth 0.1 0.1 -Total Square Cm 2.25 0.45 -Wound/Ulcer Outcome Not Healed Not Healed -Ulcer Cleansing Rinsed/ Irrigated with Saline -Foul Odor after Cleansing No -Bioengineered Tissue No -Bleeding Controlled with Pressure -Treatment Response Procedure Tolerated Well #4 RT MEDIAL ABDOMINAL FOLD -Time 13:40 12:54 -Correct Patient Yes Yes -Correct Side, Site, Position Yes Yes -Correct Procedure Yes Yes -Procedure Performed Yes Yes -Type of Procedure Debridement Debridement -Clinical Debridement Subcutaneous Subcutaneous -Post Debridement Size (cm) - Length 1.0 0.8 -Post Debridement Size (cm) - Width 1.5 0.9 -Post Debridement Size (cm) - Depth 0.2 0.2 -Total Square Cm 1.50 0.72 -Wound/Ulcer Outcome Not Healed Not Healed -Ulcer Cleansing Rinsed/ Rinsed/ Irrigated with Irrigated with Saline Saline -Foul Odor after Cleansing No No -Bioengineered Tissue No No -Bleeding Controlled with Pressure Pressure -Treatment Response Procedure Procedure Tolerated Well Tolerated Well #3 RLQ -Time 13:40 12:55 -Correct Patient Yes Yes -Correct Side, Site, Position Yes Yes -Correct Procedure Yes Yes -Procedure Performed Yes Yes -Type of Procedure Debridement Debridement -Clinical Debridement Subcutaneous Subcutaneous -Post Debridement Size (cm) - Length 2.7 2.9 -Post Debridement Size (cm) - Width 4.5 4.8 -Post Debridement Size (cm) - Depth 0.2 0.1 -Total Square Cm 12.15 13.92 -Wound/Ulcer Outcome Not Healed Not Healed -Ulcer Cleansing Rinsed/ Rinsed/ Irrigated with Irrigated with Saline Saline -Foul Odor after Cleansing No No -Bioengineered Tissue No No -Bleeding Controlled with Pressure Pressure -Treatment Response Procedure Procedure Tolerated Well Tolerated Well #2 LEFT ABDOMINAL FOLD -Time 13:40 12:55 -Correct Patient Yes Yes -Correct Side, Site, Position Yes -Correct Procedure Yes -Procedure Performed Yes No -Type of Procedure Debridement -Clinical Debridement Subcutaneous -Post Debridement Size (cm) - Length 0.4 0 -Post Debridement Size (cm) - Width 1.0 0 -Post Debridement Size (cm) - Depth 0.1 0 -Total Square Cm 0.40 0 -Wound/Ulcer Outcome Not Healed Healed- Epithelialized -Ulcer Cleansing Rinsed/ Irrigated with Saline -Foul Odor after Cleansing No -Bioengineered Tissue No -Bleeding Controlled with Pressure -Treatment Response Procedure Tolerated Well #1 LLQ -Time 13:40 12:56 -Correct Patient Yes Yes -Correct Side, Site, Position Yes Yes -Correct Procedure Yes Yes -Procedure Performed Yes Yes -Type of Procedure Debridement Debridement -Clinical Debridement Subcutaneous Subcutaneous -Post Debridement Size (cm) - Length 1.8 1.9 -Post Debridement Size (cm) - Width 3.2 2.4 -Post Debridement Size (cm) - Depth 0.2 0.1 -Total Square Cm 5.76 4.56 -Wound/Ulcer Outcome Not Healed Not Healed -Ulcer Cleansing Rinsed/ Rinsed/ Irrigated with Irrigated with Saline Saline -Foul Odor after Cleansing No No -Bioengineered Tissue No No -Bleeding Controlled with Pressure Pressure -Treatment Response Procedure Procedure Tolerated Well Tolerated Well Pain Scale: 0-10 Numeric Is Patient Pain Free? No Yes LOWER ABD -Description Sharp Burning -Intensity 6 -Duration (hours) Acute -Pain Behavior Facial Grimacing -Pain Aggravating Factors ADL's Changing Position Exercise/ Activity Sitting Walking Debridement -Alleviating Factors/Interventions None -Effectiveness of Alleviating Factor/ Not effective Intervention Wound debrided: Right abdominal wall ( Superior ) Wound Grade/Stage: Stage II Type of Debridement: Excisional debridement Anesthesia Used: 4% Lidocaine Solution Depth: Down to and including healthy tissue, in the subcutaneous layer Percentage of wound debrided: 100 Instrument Used: 5mm curette Tissue Removed: Slough and devitalized tissue Severity: Fat Layer Exposed Amount of bleeding with debridement: Mild Bleeding Controlled with: Pressure Patient tolerated procedure well - Additional Wound Wound debrided: Right abdominal fold, lateral Wound Grade/Stage: Stage II Type of Debridement: Excisional debridement Anesthesia Used: 4% Lidocaine Solution Depth: Down to and including healthy tissue, in the subcutaneous layer Percentage of wound debrided: 100 Instrument Used: 5mm curette Tissue Removed: Slough and devitalized tissue Severity: Fat Layer Exposed Amount of bleeding with debridement: Mild Bleeding Controlled with: Pressure Patient tolerated procedure: Patient tolerated procedure well - Additional Wound Wound debrided: Right abdominal fold , medial Wound Grade/Stage: Stage II Type of Debridement: Excisional debridement Anesthesia Used: 4% Lidocaine Solution Depth: Down to and including healthy tissue, in the subcutaneous layer Percentage of wound debrided: 100 Instrument Used: 5mm curette Tissue Removed: Slough and devitalized tissue Severity: Fat Layer Exposed Amount of bleeding with debridement: Mild Bleeding Controlled with: Pressure Patient tolerated procedure: Patient tolerated procedure well - Additional Wound Wound debrided: Left abdominal wall ( Superior ) Wound Grade/Stage: Stage II Type of Debridement: Excisional debridement Anesthesia Used: 4% Lidocaine Solution Depth: Down to and including healthy tissue, in the subcutaneous layer Percentage of wound debrided: 100 Instrument Used: 5mm curette Tissue Removed: Slough and devitalized tissue Severity: Fat Layer Exposed Amount of bleeding with debridement: Mild Bleeding Controlled with: Pressure Patient tolerated procedure: Patient tolerated procedure well Assessment/Plan Active Problems Intertriginous dermatitis associated with moisture (Acute) Type 2 diabetes mellitus (Acute) Morbid obesity (Acute) Skin ulcer of abdominal wall with fat layer exposed (Acute) Assessment: As stated above Plan: Mr. Moura feels a lot better in the past week and reports healing of 1 ulcer. He is taking his anti fungal and antibiotics as recommended. Debridement done as documenetd above, procedure was well tolerated. Continue all meidcations fo one more week. Continue Fibracol daily with adaptic over top. Labs reviewed with patient. Optimal blood sugar control. Increase protein supplements/dietary intake. Follow-up in 1 week. This note was generated with [employer] dictation software. It may contain incorrect words, spelling, and punctuation that were not noted in checking the note before signing.
[2017-07-27 12:08] VITALS: BP 138/78; PULSE 105; RESP 18; TEMP 36.4; BMI 42.6
--- NOTE | 2017-07-27 13:40 | PCM.WC.PN ---
(1) Intertriginous dermatitis associated with moisture Status: Acute Current Visit: Yes Code(s): L30.4 - Erythema intertrigo (2) Type 2 diabetes mellitus Status: Acute Current Visit: Yes Code(s): E11.9 - Type 2 diabetes mellitus without complications (3) Morbid obesity Status: Acute Current Visit: Yes Code(s): E66.01 - Morbid (severe) obesity due to excess calories (4) Skin ulcer of abdominal wall with fat layer exposed Status: Acute Current Visit: Yes Code(s): L98.492 - Non-pressure chronic ulcer of skin of other sites with fat layer exposed Type of Wound Date of Service: 07/27/17 Chief Complaint: Abdominal wall ulcers History of Wound: Mr. 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 Initial episode was said to be about 18 months ago and he has progressively had recurrent ulcers and some episodes of cellulitis. He has been applying cortisone cream and sprays to the area as recommended however no significant improvement. There is significant tenderness around the ulcers. He denies any discharge. Also has a sense of the most prominent between the abdominal folds. He feels well otherwise and denies chills, fever, loss of appetite, nausea, vomiting or change in his bowel habit. Progress of Wound: Improving. Has completed his course of antibiotics. - Physical Exam Vital Signs Temp Pulse Resp BP 97.5 F L 105 H 18 138/78 H 07/27/17 12:08 07/27/17 12:08 07/27/17 12:08 07/27/17 12:08 General: Alert, Oriented x3, Cooperative, No apparent distress HEENT: Atraumatic, Normocephalic Oral: Moist Mucosa Neck: Supple Lungs: Normal air movement Cardiovascular: Regular rate Abdomen: Non Tender, Obese Extremities: No cyanosis Skin: Ulcer/ Wound Wound Measurements and Assessment WC - Nurse 1 - General Ulcer Measurement Start: 07/13/17 11:58 Freq: Status: Active Protocol: Activity Type Activity Date Activity User E-Sign Co-Sign Detail Recorded Client Recorded Date Recorded By Document 07/27/17 12:08 DL [id number] 07/27/17 12:22 DL 07/27/17 12:08 Wound Center Nurse 1 [Ulcer Assessment] #5 RT LATERAL ABDOMINAL FOLD -Current Size (cm) - Length 0.8 -Current Size (cm) - Width 0.5 -Current Size (cm) - Depth 0.1 -Total Square Cm 0.40 -Photo Taken No -Exudate Amt Small (1-33%) -Exudate Type Serosanguineous -Wound Margin Distinct, Outline Attached -Granulation Amt Large (67-100%) -Granulation Quality Red -Necrosis Amt None Present (0 %) -Structure Exposed N/A -Texture (Nesha-wound Skin Appearance) Scarring -Moisture (Nesha-wound Skin Appearance No Abnormality ) -Color (Nesha-wound Skin Appearance) No Abnormality -Temperature (Nesha-wound Skin No Abnormality Appearance) (Pt Warm) -Ulcer Cleansing Rinsed/ Irrigated with Saline -Foul Odor after Cleansing No -Anesthetic Used 4% Lidocaine Solution #4 RT MEDIAL ABDOMINAL FOLD -Current Size (cm) - Length 0.6 -Current Size (cm) - Width 0.7 -Current Size (cm) - Depth 0.1 -Total Square Cm 0.42 -Photo Taken No -Exudate Amt None Present (0 %) -Wound Margin Distinct, Outline Attached -Granulation Amt Large (67-100%) -Granulation Quality Red -Necrosis Amt None Present (0 %) -Structure Exposed N/A -Texture (Nesha-wound Skin Appearance) Scarring -Moisture (Nesha-wound Skin Appearance No Abnormality ) -Color (Nesha-wound Skin Appearance) No Abnormality -Ulcer Cleansing Rinsed/ Irrigated with Saline -Foul Odor after Cleansing Yes, Due to Product Use -Anesthetic Used 4% Lidocaine Solution #3 RLQ -Current Size (cm) - Length 1.8 -Current Size (cm) - Width 3.7 -Current Size (cm) - Depth 0.1 -Total Square Cm 6.66 -Photo Taken No -Exudate Amt Small (1-33%) -Exudate Type Serosanguineous -Wound Margin Distinct, Outline Attached -Granulation Amt Large (67-100%) -Granulation Quality Red -Necrosis Amt None Present (0 %) -Structure Exposed N/A -Texture (Nesha-wound Skin Appearance) Scarring -Moisture (Nesha-wound Skin Appearance No Abnormality ) -Color (Nesha-wound Skin Appearance) No Abnormality -Temperature (Nesha-wound Skin No Abnormality Appearance) (Pt Warm) -Tenderness on Palpation (Nesha-wound No Skin Appearance) -Ulcer Cleansing Rinsed/ Irrigated with Saline -Foul Odor after Cleansing No -Anesthetic Used 4% Lidocaine Solution #1 LLQ -Current Size (cm) - Length 1.7 -Current Size (cm) - Width 2.3 -Current Size (cm) - Depth 0.1 -Total Square Cm 3.91 -Photo Taken No -Exudate Amt Small (1-33%) -Exudate Type Serosanguineous -Wound Margin Distinct, Outline Attached -Granulation Amt Large (67-100%) -Granulation Quality Red -Necrosis Amt None Present (0 %) -Structure Exposed N/A -Texture (Nesha-wound Skin Appearance) Scarring -Moisture (Nesha-wound Skin Appearance No Abnormality ) -Color (Nesha-wound Skin Appearance) No Abnormality -Temperature (Nesha-wound Skin No Abnormality Appearance) (Pt Warm) -Tenderness on Palpation (Nesha-wound No Skin Appearance) -Ulcer Cleansing Rinsed/ Irrigated with Saline -Foul Odor after Cleansing No -Anesthetic Used 4% Lidocaine Solution WC - Nurse 2 - General Ulcer CM Notes Start: 07/13/17 11:58 Freq: Status: Active Protocol: Activity Type Activity Date Activity User E-Sign Co-Sign Detail Recorded Client Recorded Date Recorded By Document 07/27/17 12:45 DV [id number] 07/27/17 12:50 DV 07/27/17 12:45 Wound Center Nurse 2 [Procedure/Treatment] #5 RT LATERAL ABDOMINAL FOLD -Time 12:47 -Correct Patient Yes -Correct Side, Site, Position Yes -Correct Procedure Yes -Procedure Performed Yes -Type of Procedure Debridement -Clinical Debridement Subcutaneous -Post Debridement Size (cm) - Length 0.5 -Post Debridement Size (cm) - Width 0.9 -Post Debridement Size (cm) - Depth 0.1 -Total Square Cm 0.45 -Wound/Ulcer Outcome Not Healed -Ulcer Cleansing Rinsed/ Irrigated with Saline -Foul Odor after Cleansing No -Bioengineered Tissue No -Bleeding Controlled with NA -Treatment Response Procedure Tolerated Well #4 RT MEDIAL ABDOMINAL FOLD -Time 12:47 -Correct Patient Yes -Correct Side, Site, Position Yes -Correct Procedure Yes -Procedure Performed Yes -Type of Procedure Debridement -Clinical Debridement Subcutaneous -Post Debridement Size (cm) - Length 0.7 -Post Debridement Size (cm) - Width 1.0 -Post Debridement Size (cm) - Depth 0.1 -Total Square Cm 0.70 -Wound/Ulcer Outcome Not Healed -Ulcer Cleansing Rinsed/ Irrigated with Saline -Foul Odor after Cleansing No -Bioengineered Tissue No -Bleeding Controlled with NA -Treatment Response Procedure Tolerated Well #3 RLQ -Time 12:45 -Correct Patient Yes -Correct Side, Site, Position Yes -Correct Procedure Yes -Procedure Performed Yes -Type of Procedure Debridement -Clinical Debridement Subcutaneous -Post Debridement Size (cm) - Length 1.6 -Post Debridement Size (cm) - Width 3.3 -Post Debridement Size (cm) - Depth 0.1 -Total Square Cm 5.28 -Wound/Ulcer Outcome Not Healed -Ulcer Cleansing Rinsed/ Irrigated with Saline -Foul Odor after Cleansing No -Bioengineered Tissue No -Bleeding Controlled with NA -Treatment Response Procedure Tolerated Well #1 LLQ -Time 12:46 -Correct Patient Yes -Correct Side, Site, Position Yes -Correct Procedure Yes -Procedure Performed Yes -Type of Procedure Debridement -Clinical Debridement Subcutaneous -Post Debridement Size (cm) - Length 1.7 -Post Debridement Size (cm) - Width 2.4 -Post Debridement Size (cm) - Depth 0.1 -Total Square Cm 4.08 -Wound/Ulcer Outcome Not Healed -Ulcer Cleansing Rinsed/ Irrigated with Saline -Foul Odor after Cleansing No -Bioengineered Tissue No -Bleeding Controlled with NA -Treatment Response Procedure Tolerated Well [See Physician Procedure note for Specifics] Pain Scale: 0-10 Numeric [Pain] -Is Patient Pain Free? Yes Musculoskeletal: No Muscle Wasting Neurological: Cranial nerves II-XII grossly intact Psych/Mental Status: Normal Affect Debridement Note Post-Debridement Measurements/Treatment WC - Nurse 2 - General Ulcer CM Notes Start: 07/13/17 11:58 Freq: Status: Active Protocol: Activity Type Activity Date Activity User E-Sign Co-Sign Detail Recorded Client Recorded Date Recorded By Document 07/13/17 13:40 DV [id number] 07/13/17 21:25 DV Document 07/20/17 12:53 DV [id number] 07/20/17 12:58 DV Document 07/27/17 12:45 DV [id number] 07/27/17 12:50 DV 07/13/17 07/20/17 07/27/17 13:40 12:53 12:45 Wound Center Nurse 2 #5 RT LATERAL ABDOMINAL FOLD -Time 13:40 12:53 12:47 -Correct Patient Yes Yes Yes -Correct Side, Site, Position Yes Yes Yes -Correct Procedure Yes Yes Yes -Procedure Performed Yes Yes Yes -Type of Procedure Debridement Debridement Debridement -Clinical Debridement Subcutaneous Subcutaneous Subcutaneous -Post Debridement Size (cm) - Length 1.5 0.9 0.5 -Post Debridement Size (cm) - Width 1.5 0.5 0.9 -Post Debridement Size (cm) - Depth 0.1 0.1 0.1 -Total Square Cm 2.25 0.45 0.45 -Wound/Ulcer Outcome Not Healed Not Healed Not Healed -Ulcer Cleansing Rinsed/ Rinsed/ Irrigated with Irrigated with Saline Saline -Foul Odor after Cleansing No No -Bioengineered Tissue No No -Bleeding Controlled with Pressure NA -Treatment Response Procedure Procedure Tolerated Well Tolerated Well #4 RT MEDIAL ABDOMINAL FOLD -Time 13:40 12:54 12:47 -Correct Patient Yes Yes Yes -Correct Side, Site, Position Yes Yes Yes -Correct Procedure Yes Yes Yes -Procedure Performed Yes Yes Yes -Type of Procedure Debridement Debridement Debridement -Clinical Debridement Subcutaneous Subcutaneous Subcutaneous -Post Debridement Size (cm) - Length 1.0 0.8 0.7 -Post Debridement Size (cm) - Width 1.5 0.9 1.0 -Post Debridement Size (cm) - Depth 0.2 0.2 0.1 -Total Square Cm 1.50 0.72 0.70 -Wound/Ulcer Outcome Not Healed Not Healed Not Healed -Ulcer Cleansing Rinsed/ Rinsed/ Rinsed/ Irrigated with Irrigated with Irrigated with Saline Saline Saline -Foul Odor after Cleansing No No No -Bioengineered Tissue No No No -Bleeding Controlled with Pressure Pressure NA -Treatment Response Procedure Procedure Procedure Tolerated Well Tolerated Well Tolerated Well #3 RLQ -Time 13:40 12:55 12:45 -Correct Patient Yes Yes Yes -Correct Side, Site, Position Yes Yes Yes -Correct Procedure Yes Yes Yes -Procedure Performed Yes Yes Yes -Type of Procedure Debridement Debridement Debridement -Clinical Debridement Subcutaneous Subcutaneous Subcutaneous -Post Debridement Size (cm) - Length 2.7 2.9 1.6 -Post Debridement Size (cm) - Width 4.5 4.8 3.3 -Post Debridement Size (cm) - Depth 0.2 0.1 0.1 -Total Square Cm 12.15 13.92 5.28 -Wound/Ulcer Outcome Not Healed Not Healed Not Healed -Ulcer Cleansing Rinsed/ Rinsed/ Rinsed/ Irrigated with Irrigated with Irrigated with Saline Saline Saline -Foul Odor after Cleansing No No No -Bioengineered Tissue No No No -Bleeding Controlled with Pressure Pressure NA -Treatment Response Procedure Procedure Procedure Tolerated Well Tolerated Well Tolerated Well #2 LEFT ABDOMINAL FOLD -Time 13:40 12:55 -Correct Patient Yes Yes -Correct Side, Site, Position Yes -Correct Procedure Yes -Procedure Performed Yes No -Type of Procedure Debridement -Clinical Debridement Subcutaneous -Post Debridement Size (cm) - Length 0.4 0 -Post Debridement Size (cm) - Width 1.0 0 -Post Debridement Size (cm) - Depth 0.1 0 -Total Square Cm 0.40 0 -Wound/Ulcer Outcome Not Healed Healed- Epithelialized -Ulcer Cleansing Rinsed/ Irrigated with Saline -Foul Odor after Cleansing No -Bioengineered Tissue No -Bleeding Controlled with Pressure -Treatment Response Procedure Tolerated Well #1 LLQ -Time 13:40 12:56 12:46 -Correct Patient Yes Yes Yes -Correct Side, Site, Position Yes Yes Yes -Correct Procedure Yes Yes Yes -Procedure Performed Yes Yes Yes -Type of Procedure Debridement Debridement Debridement -Clinical Debridement Subcutaneous Subcutaneous Subcutaneous -Post Debridement Size (cm) - Length 1.8 1.9 1.7 -Post Debridement Size (cm) - Width 3.2 2.4 2.4 -Post Debridement Size (cm) - Depth 0.2 0.1 0.1 -Total Square Cm 5.76 4.56 4.08 -Wound/Ulcer Outcome Not Healed Not Healed Not Healed -Ulcer Cleansing Rinsed/ Rinsed/ Rinsed/ Irrigated with Irrigated with Irrigated with Saline Saline Saline -Foul Odor after Cleansing No No No -Bioengineered Tissue No No No -Bleeding Controlled with Pressure Pressure NA -Treatment Response Procedure Procedure Procedure Tolerated Well Tolerated Well Tolerated Well Pain Scale: 0-10 Numeric Is Patient Pain Free? No Yes Yes LOWER ABD -Description Sharp Burning -Intensity 6 -Duration (hours) Acute -Pain Behavior Facial Grimacing -Pain Aggravating Factors ADL's Changing Position Exercise/ Activity Sitting Walking Debridement -Alleviating Factors/Interventions None -Effectiveness of Alleviating Factor/ Not effective Intervention Wound debrided: Right lower eabdomen ( Superior ) Wound Grade/Stage: Stage II Type of Debridement: Excisional debridement Anesthesia Used: 4% Lidocaine Solution Depth: Down to and including healthy tissue, in the subcutaneous layer Percentage of wound debrided: 100 Instrument Used: 5mm curette Tissue Removed: Slough and devitalized tissue Severity: Fat Layer Exposed Amount of bleeding with debridement: Mild Bleeding Controlled with: Pressure Patient tolerated procedure well - Additional Wound Wound debrided: Right abdominal fold ( medial ) Wound Grade/Stage: Stage II Type of Debridement: Excisional debridement Anesthesia Used: 4% Lidocaine Solution Depth: Down to and including healthy tissue, in the subcutaneous layer Percentage of wound debrided: 100 Instrument Used: 5mm curette Tissue Removed: Slough and devitalized tissue Severity: Fat Layer Exposed Amount of bleeding with debridement: Mild Bleeding Controlled with: Pressure Patient tolerated procedure: Patient tolerated procedure well - Additional Wound Wound debrided: Right abdominal fols ( lateral ) Wound Grade/Stage: Stage II Type of Debridement: Excisional debridement Anesthesia Used: 4% Lidocaine Solution Depth: Down to and including healthy tissue, in the subcutaneous layer Percentage of wound debrided: 100 Instrument Used: 5mm curette Tissue Removed: Slough and devitalized tissue Severity: Fat Layer Exposed Amount of bleeding with debridement: Mild Bleeding Controlled with: Pressure Patient tolerated procedure: Patient tolerated procedure well - Additional Wound Wound debrided: Left lower abdomen Wound Grade/Stage: Stage II Type of Debridement: Excisional debridement Anesthesia Used: 4% Lidocaine Solution Depth: Down to and including healthy tissue, in the subcutaneous layer Percentage of wound debrided: 100 Instrument Used: 5mm curette Tissue Removed: Slough and devitalized tissue Severity: Fat Layer Exposed Amount of bleeding with debridement: Mild Bleeding Controlled with: Pressure Patient tolerated procedure: Patient tolerated procedure well Assessment/Plan Active Problems Intertriginous dermatitis associated with moisture (Acute) Type 2 diabetes mellitus (Acute) Morbid obesity (Acute) Skin ulcer of abdominal wall with fat layer exposed (Acute) Assessment: As stated above Plan: Wounds continue to show good improvement. He has completed his course of Abx. Debridement done as documented above, procedure was well tolerated. Continue Fibracol daily with adaptic over top. Optimal blood sugar control. Increase protein supplements/dietary intake. Follow-up in 1 week. This note was generated with [employer] software. It may contain incorrect words, spelling, and punctuation that were not noted in checking the note before signing.
[2017-08-03 11:28] VITALS: BMI 42.6
--- NOTE | 2017-08-03 16:54 | PCM.WC.PN ---
(1) Intertriginous dermatitis associated with moisture Status: Acute Current Visit: Yes Code(s): L30.4 - Erythema intertrigo (2) Type 2 diabetes mellitus Status: Acute Current Visit: Yes Code(s): E11.9 - Type 2 diabetes mellitus without complications (3) Morbid obesity Status: Acute Current Visit: Yes Code(s): E66.01 - Morbid (severe) obesity due to excess calories (4) Skin ulcer of abdominal wall with fat layer exposed Status: Acute Current Visit: Yes Code(s): L98.492 - Non-pressure chronic ulcer of skin of other sites with fat layer exposed Type of Wound Date of Service: 08/03/17 Chief Complaint: Abdominal wall ulcers History of Wound: Mr. Moura is a 71yo with past medical history as stated above who was referred to the wound center by his porter head due to nonhealing abdominal wound/ulcers. Initial episode was said to be about 18 months ago and he has progressively had recurrent ulcers and some episodes of cellulitis. He has been applying cortisone cream and sprays to the area as recommended however no significant improvement. There is significant tenderness around the ulcers. He denies any discharge. Also has a sense of the most prominent between the abdominal folds. He feels well otherwise and denies chills, fever, loss of appetite, nausea, vomiting or change in his bowel habit. Progress of Wound: Ulcers are improving however, he now presents with abdominal wall tenderness and redness. He reports a history of recurrent abdominal wall celluitis with last significant episode about 2 years ago. He feel well otherwise and denies chills, fever, nausea, vomitting or any change in his bowel habit. - Physical Exam Vital Signs Temp Pulse Resp BP 97.5 F L 105 H 18 138/78 H 07/27/17 12:08 07/27/17 12:08 07/27/17 12:08 07/27/17 12:08 General: Alert, Oriented x3, Cooperative, No apparent distress HEENT: Atraumatic, Normocephalic Oral: Moist Mucosa Neck: Supple Lungs: Normal air movement Abdomen: Soft, Tender, - - Diffuse abdominal wall erythema Extremities: No clubbing Skin: Ulcer/ Wound Wound Measurements and Assessment WC - Nurse 1 - General Ulcer Measurement Start: 07/13/17 11:58 Freq: Status: Active Protocol: Activity Type Activity Date Activity User E-Sign Co-Sign Detail Recorded Client Recorded Date Recorded By Document 08/03/17 11:28 [facility] [id number] 08/03/17 11:51 [facility] 08/03/17 11:28 Wound Center Nurse 1 [Ulcer Assessment] #5 RT LATERAL ABDOMINAL FOLD -Combined with other wound No -Current Size (cm) - Length 0.5 -Current Size (cm) - Width 0.7 -Current Size (cm) - Depth 0.1 -Total Square Cm 0.35 -Photo Taken No -Epithelialization Small 1-33% -Tunneling No -Undermining/Tunneling No -Circular Undermining No -Exudate Amt Small (1-33%) -Exudate Type Sanguineous -Wound Margin Distinct, Outline Attached -Granulation Amt Large (67-100%) -Granulation Quality Red -Slough/Fibrin No -Necrosis Amt None Present (0 %) -Structure Exposed None/Limited to Skin Breakdown -Texture (Nesha-wound Skin Appearance) Scarring -Moisture (Nesha-wound Skin Appearance Assessed ) -Color (Nesha-wound Skin Appearance) Erythema -Temperature (Nesha-wound Skin No Abnormality Appearance) (Pt Warm) -Tenderness on Palpation (Nesha-wound Yes Skin Appearance) -Ulcer Cleansing Wound Cleanser -Foul Odor after Cleansing No -Anesthetic Used 5% Lidocaine Gel #4 RT MEDIAL ABDOMINAL FOLD -Combined with other wound No -Current Size (cm) - Length 0.6 -Current Size (cm) - Width 0.5 -Current Size (cm) - Depth 0.1 -Total Square Cm 0.30 -Photo Taken No -Epithelialization Medium 34-66% -Tunneling No -Undermining/Tunneling No -Circular Undermining No -Exudate Amt Small (1-33%) -Exudate Type Sanguineous -Wound Margin Distinct, Outline Attached -Granulation Amt Large (67-100%) -Granulation Quality Red -Slough/Fibrin No -Necrosis Amt None Present (0 %) -Structure Exposed N/A -Texture (Nesha-wound Skin Appearance) Scarring -Moisture (Nesha-wound Skin Appearance Assessed ) -Color (Nesha-wound Skin Appearance) Erythema -Temperature (Nesha-wound Skin No Abnormality Appearance) (Pt Warm) -Tenderness on Palpation (Nesha-wound Yes Skin Appearance) -Ulcer Cleansing Wound Cleanser -Foul Odor after Cleansing No -Anesthetic Used 5% Lidocaine Gel #3 RLQ -Combined with other wound No -Current Size (cm) - Length 1.4 -Current Size (cm) - Width 3 -Current Size (cm) - Depth 0.1 -Total Square Cm 4.2 -Photo Taken No -Epithelialization Small 1-33% -Tunneling No -Undermining/Tunneling No -Circular Undermining No -Exudate Amt Small (1-33%) -Exudate Type Sanguineous -Wound Margin Distinct, Outline Attached -Granulation Amt Large (67-100%) -Granulation Quality Red -Slough/Fibrin No -Necrosis Amt None Present (0 %) -Structure Exposed None/Limited to Skin Breakdown -Texture (Nesha-wound Skin Appearance) Scarring -Color (Nesha-wound Skin Appearance) Assessed Erythema -Temperature (Nesha-wound Skin No Abnormality Appearance) (Pt Warm) -Tenderness on Palpation (Nesha-wound Yes Skin Appearance) -Ulcer Cleansing Wound Cleanser -Foul Odor after Cleansing No -Anesthetic Used 5% Lidocaine Gel #1 LLQ -Combined with other wound No -Current Size (cm) - Length 1.7 -Current Size (cm) - Width 1.9 -Current Size (cm) - Depth 0.1 -Total Square Cm 3.23 -Photo Taken No -Epithelialization Small 1-33% -Tunneling No -Undermining/Tunneling No -Circular Undermining No -Exudate Amt Small (1-33%) -Exudate Type Sanguineous -Wound Margin Distinct, Outline Attached -Granulation Amt Large (67-100%) -Granulation Quality Red -Slough/Fibrin No -Necrosis Amt None Present (0 %) -Structure Exposed None/Limited to Skin Breakdown -Texture (Nesha-wound Skin Appearance) Scarring -Moisture (Nesha-wound Skin Appearance Assessed ) -Color (Nesha-wound Skin Appearance) Erythema -Temperature (Nesha-wound Skin No Abnormality Appearance) (Pt Warm) -Tenderness on Palpation (Nesha-wound No Skin Appearance) -Ulcer Cleansing Wound Cleanser -Foul Odor after Cleansing No -Anesthetic Used 5% Lidocaine Gel WC - Nurse 2 - General Ulcer CM Notes Start: 07/13/17 11:58 Freq: Status: Active Protocol: Activity Type Activity Date Activity User E-Sign Co-Sign Detail Recorded Client Recorded Date Recorded By Document 05/24/18 12:54 DV [id number] 08/03/17 12:58 DV 08/03/17 12:54 Wound Center Nurse 2 [Procedure/Treatment] #5 RT LATERAL ABDOMINAL FOLD -Time 12:54 -Correct Patient Yes -Correct Side, Site, Position Yes -Correct Procedure Yes -Procedure Performed Yes -Type of Procedure Debridement -Clinical Debridement Subcutaneous -Post Debridement Size (cm) - Length 0.4 -Post Debridement Size (cm) - Width 0.6 -Post Debridement Size (cm) - Depth 0.1 -Total Square Cm 0.24 -Wound/Ulcer Outcome Not Healed -Ulcer Cleansing Rinsed/ Irrigated with Saline -Foul Odor after Cleansing No -Bioengineered Tissue No -Bleeding Controlled with Pressure -Treatment Response Procedure Tolerated Well #4 RT MEDIAL ABDOMINAL FOLD -Time 12:55 -Correct Patient Yes -Correct Side, Site, Position Yes -Correct Procedure Yes -Procedure Performed Yes -Type of Procedure Debridement -Clinical Debridement Subcutaneous -Post Debridement Size (cm) - Length 0.3 -Post Debridement Size (cm) - Width 0.3 -Post Debridement Size (cm) - Depth 0.1 -Total Square Cm 0.09 -Wound/Ulcer Outcome Not Healed -Ulcer Cleansing Rinsed/ Irrigated with Saline -Foul Odor after Cleansing No -Bioengineered Tissue No -Bleeding Controlled with Pressure -Treatment Response Procedure Tolerated Well #3 RLQ -Time 12:57 -Correct Patient Yes -Correct Side, Site, Position Yes -Correct Procedure Yes -Procedure Performed Yes -Type of Procedure Debridement -Clinical Debridement Subcutaneous -Post Debridement Size (cm) - Length 1.0 -Post Debridement Size (cm) - Width 3.0 -Post Debridement Size (cm) - Depth 0.1 -Total Square Cm 3.00 -Wound/Ulcer Outcome Not Healed -Ulcer Cleansing Rinsed/ Irrigated with Saline -Foul Odor after Cleansing No -Bioengineered Tissue No -Bleeding Controlled with Pressure -Treatment Response Procedure Tolerated Well #1 LLQ -Time 12:57 -Correct Patient Yes -Correct Side, Site, Position Yes -Correct Procedure Yes -Procedure Performed Yes -Type of Procedure Debridement -Clinical Debridement Subcutaneous -Post Debridement Size (cm) - Length 1.5 -Post Debridement Size (cm) - Width 1.9 -Post Debridement Size (cm) - Depth 0.1 -Total Square Cm 2.85 -Wound/Ulcer Outcome Not Healed -Ulcer Cleansing Rinsed/ Irrigated with Saline -Foul Odor after Cleansing No -Bioengineered Tissue No -Bleeding Controlled with Pressure -Treatment Response Procedure Tolerated Well [See Physician Procedure note for Specifics] Pain Scale: 0-10 Numeric [Pain] -Is Patient Pain Free? Yes Musculoskeletal: No Muscle Wasting Neurological: Cranial nerves II-XII grossly intact Psych/Mental Status: Normal Affect Debridement Note Post-Debridement Measurements/Treatment WC - Nurse 2 - General Ulcer CM Notes Start: 07/13/17 11:58 Freq: Status: Active Protocol: Activity Type Activity Date Activity User E-Sign Co-Sign Detail Recorded Client Recorded Date Recorded By Document 07/13/17 13:40 DV [id number] 07/13/17 21:25 DV Document 07/20/17 12:53 DV [id number] 07/20/17 12:58 DV Document 07/27/17 12:45 DV [id number] 07/27/17 12:50 DV Document 08/03/17 12:54 DV [id number] 08/03/17 12:58 DV 07/13/17 07/20/17 07/27/17 13:40 12:53 12:45 Wound Center Nurse 2 #5 RT LATERAL ABDOMINAL FOLD -Time 13:40 12:53 12:47 -Correct Patient Yes Yes Yes -Correct Side, Site, Position Yes Yes Yes -Correct Procedure Yes Yes Yes -Procedure Performed Yes Yes Yes -Type of Procedure Debridement Debridement Debridement -Clinical Debridement Subcutaneous Subcutaneous Subcutaneous -Post Debridement Size (cm) - Length 1.5 0.9 0.5 -Post Debridement Size (cm) - Width 1.5 0.5 0.9 -Post Debridement Size (cm) - Depth 0.1 0.1 0.1 -Total Square Cm 2.25 0.45 0.45 -Wound/Ulcer Outcome Not Healed Not Healed Not Healed -Ulcer Cleansing Rinsed/ Rinsed/ Irrigated with Irrigated with Saline Saline -Foul Odor after Cleansing No No -Bioengineered Tissue No No -Bleeding Controlled with Pressure NA -Treatment Response Procedure Procedure Tolerated Well Tolerated Well #4 RT MEDIAL ABDOMINAL FOLD -Time 13:40 12:54 12:47 -Correct Patient Yes Yes Yes -Correct Side, Site, Position Yes Yes Yes -Correct Procedure Yes Yes Yes -Procedure Performed Yes Yes Yes -Type of Procedure Debridement Debridement Debridement -Clinical Debridement Subcutaneous Subcutaneous Subcutaneous -Post Debridement Size (cm) - Length 1.0 0.8 0.7 -Post Debridement Size (cm) - Width 1.5 0.9 1.0 -Post Debridement Size (cm) - Depth 0.2 0.2 0.1 -Total Square Cm 1.50 0.72 0.70 -Wound/Ulcer Outcome Not Healed Not Healed Not Healed -Ulcer Cleansing Rinsed/ Rinsed/ Rinsed/ Irrigated with Irrigated with Irrigated with Saline Saline Saline -Foul Odor after Cleansing No No No -Bioengineered Tissue No No No -Bleeding Controlled with Pressure Pressure NA -Treatment Response Procedure Procedure Procedure Tolerated Well Tolerated Well Tolerated Well #3 RLQ -Time 13:40 12:55 12:45 -Correct Patient Yes Yes Yes -Correct Side, Site, Position Yes Yes Yes -Correct Procedure Yes Yes Yes -Procedure Performed Yes Yes Yes -Type of Procedure Debridement Debridement Debridement -Clinical Debridement Subcutaneous Subcutaneous Subcutaneous -Post Debridement Size (cm) - Length 2.7 2.9 1.6 -Post Debridement Size (cm) - Width 4.5 4.8 3.3 -Post Debridement Size (cm) - Depth 0.2 0.1 0.1 -Total Square Cm 12.15 13.92 5.28 -Wound/Ulcer Outcome Not Healed Not Healed Not Healed -Ulcer Cleansing Rinsed/ Rinsed/ Rinsed/ Irrigated with Irrigated with Irrigated with Saline Saline Saline -Foul Odor after Cleansing No No No -Bioengineered Tissue No No No -Bleeding Controlled with Pressure Pressure NA -Treatment Response Procedure Procedure Procedure Tolerated Well Tolerated Well Tolerated Well #2 LEFT ABDOMINAL FOLD -Time 13:40 12:55 -Correct Patient Yes Yes -Correct Side, Site, Position Yes -Correct Procedure Yes -Procedure Performed Yes No -Type of Procedure Debridement -Clinical Debridement Subcutaneous -Post Debridement Size (cm) - Length 0.4 0 -Post Debridement Size (cm) - Width 1.0 0 -Post Debridement Size (cm) - Depth 0.1 0 -Total Square Cm 0.40 0 -Wound/Ulcer Outcome Not Healed Healed- Epithelialized -Ulcer Cleansing Rinsed/ Irrigated with Saline -Foul Odor after Cleansing No -Bioengineered Tissue No -Bleeding Controlled with Pressure -Treatment Response Procedure Tolerated Well #1 LLQ -Time 13:40 12:56 12:46 -Correct Patient Yes Yes Yes -Correct Side, Site, Position Yes Yes Yes -Correct Procedure Yes Yes Yes -Procedure Performed Yes Yes Yes -Type of Procedure Debridement Debridement Debridement -Clinical Debridement Subcutaneous Subcutaneous Subcutaneous -Post Debridement Size (cm) - Length 1.8 1.9 1.7 -Post Debridement Size (cm) - Width 3.2 2.4 2.4 -Post Debridement Size (cm) - Depth 0.2 0.1 0.1 -Total Square Cm 5.76 4.56 4.08 -Wound/Ulcer Outcome Not Healed Not Healed Not Healed -Ulcer Cleansing Rinsed/ Rinsed/ Rinsed/ Irrigated with Irrigated with Irrigated with Saline Saline Saline -Foul Odor after Cleansing No No No -Bioengineered Tissue No No No -Bleeding Controlled with Pressure Pressure NA -Treatment Response Procedure Procedure Procedure Tolerated Well Tolerated Well Tolerated Well Pain Scale: 0-10 Numeric Is Patient Pain Free? No Yes Yes LOWER ABD -Description Sharp Burning -Intensity 6 -Duration (hours) Acute -Pain Behavior Facial Grimacing -Pain Aggravating Factors ADL's Changing Position Exercise/ Activity Sitting Walking Debridement -Alleviating Factors/Interventions None -Effectiveness of Alleviating Factor/ Not effective Intervention 08/03/17 12:54 Wound Center Nurse 2 #5 RT LATERAL ABDOMINAL FOLD -Time 12:54 -Correct Patient Yes -Correct Side, Site, Position Yes -Correct Procedure Yes -Procedure Performed Yes -Type of Procedure Debridement -Clinical Debridement Subcutaneous -Post Debridement Size (cm) - Length 0.4 -Post Debridement Size (cm) - Width 0.6 -Post Debridement Size (cm) - Depth 0.1 -Total Square Cm 0.24 -Wound/Ulcer Outcome Not Healed -Ulcer Cleansing Rinsed/ Irrigated with Saline -Foul Odor after Cleansing No -Bioengineered Tissue No -Bleeding Controlled with Pressure -Treatment Response Procedure Tolerated Well #4 RT MEDIAL ABDOMINAL FOLD -Time 12:55 -Correct Patient Yes -Correct Side, Site, Position Yes -Correct Procedure Yes -Procedure Performed Yes -Type of Procedure Debridement -Clinical Debridement Subcutaneous -Post Debridement Size (cm) - Length 0.3 -Post Debridement Size (cm) - Width 0.3 -Post Debridement Size (cm) - Depth 0.1 -Total Square Cm 0.09 -Wound/Ulcer Outcome Not Healed -Ulcer Cleansing Rinsed/ Irrigated with Saline -Foul Odor after Cleansing No -Bioengineered Tissue No -Bleeding Controlled with Pressure -Treatment Response Procedure Tolerated Well #3 RLQ -Time 12:57 -Correct Patient Yes -Correct Side, Site, Position Yes -Correct Procedure Yes -Procedure Performed Yes -Type of Procedure Debridement -Clinical Debridement Subcutaneous -Post Debridement Size (cm) - Length 1.0 -Post Debridement Size (cm) - Width 3.0 -Post Debridement Size (cm) - Depth 0.1 -Total Square Cm 3.00 -Wound/Ulcer Outcome Not Healed -Ulcer Cleansing Rinsed/ Irrigated with Saline -Foul Odor after Cleansing No -Bioengineered Tissue No -Bleeding Controlled with Pressure -Treatment Response Procedure Tolerated Well #2 LEFT ABDOMINAL FOLD -Time -Correct Patient -Correct Side, Site, Position -Correct Procedure -Procedure Performed -Type of Procedure -Clinical Debridement -Post Debridement Size (cm) - Length -Post Debridement Size (cm) - Width -Post Debridement Size (cm) - Depth -Total Square Cm -Wound/Ulcer Outcome -Ulcer Cleansing -Foul Odor after Cleansing -Bioengineered Tissue -Bleeding Controlled with -Treatment Response #1 LLQ -Time 12:57 -Correct Patient Yes -Correct Side, Site, Position Yes -Correct Procedure Yes -Procedure Performed Yes -Type of Procedure Debridement -Clinical Debridement Subcutaneous -Post Debridement Size (cm) - Length 1.5 -Post Debridement Size (cm) - Width 1.9 -Post Debridement Size (cm) - Depth 0.1 -Total Square Cm 2.85 -Wound/Ulcer Outcome Not Healed -Ulcer Cleansing Rinsed/ Irrigated with Saline -Foul Odor after Cleansing No -Bioengineered Tissue No -Bleeding Controlled with Pressure -Treatment Response Procedure Tolerated Well Pain Scale: 0-10 Numeric Is Patient Pain Free? Yes LOWER ABD -Description -Intensity -Duration (hours) -Pain Behavior -Pain Aggravating Factors -Alleviating Factors/Interventions -Effectiveness of Alleviating Factor/ Intervention Wound debrided: Left Lower abdomen ( Superior ) Wound Grade/Stage: Stage II Type of Debridement: Excisional debridement Anesthesia Used: 5% Lidocaine Gel Depth: Down to and including healthy tissue, in the subcutaneous layer Percentage of wound debrided: 100 Instrument Used: 5mm curette Tissue Removed: Slough and devitalized tissue Severity: Fat Layer Exposed Amount of bleeding with debridement: Mild Bleeding Controlled with: Pressure Patient tolerated procedure well - Additional Wound Wound debrided: Right lower abdomen ( Superior ) Wound Grade/Stage: Stage II Type of Debridement: Excisional debridement Anesthesia Used: 5% Lidocaine Gel Depth: Down to and including healthy tissue, in the subcutaneous layer Percentage of wound debrided: 100 Instrument Used: 5mm curette Tissue Removed: Slough and devitalized tissue Severity: Fat Layer Exposed Amount of bleeding with debridement: Mild Bleeding Controlled with: Pressure Patient tolerated procedure: Patient tolerated procedure well - Additional Wound Wound debrided: Right abdominal fold ( Medial ) Wound Grade/Stage: Stage II Type of Debridement: Excisional debridement Anesthesia Used: 5% Lidocaine Gel Depth: Down to and including healthy tissue, in the subcutaneous layer Percentage of wound debrided: 100 Instrument Used: 5mm curette Tissue Removed: Slough and devitalized tissue Severity: Fat Layer Exposed Amount of bleeding with debridement: Mild Bleeding Controlled with: Pressure Patient tolerated procedure: Patient tolerated procedure well - Additional Wound Wound debrided: Right abdominal fold ( Lateral ) Wound Grade/Stage: Stage II Type of Debridement: Excisional debridement Anesthesia Used: 5% Lidocaine Gel Depth: Down to and including healthy tissue, in the subcutaneous layer Percentage of wound debrided: 100 Instrument Used: 5mm curette Tissue Removed: Slough and devitalized tissue Severity: Fat Layer Exposed Amount of bleeding with debridement: Mild Bleeding Controlled with: Pressure Patient tolerated procedure: Patient tolerated procedure well Assessment/Plan Active Problems Intertriginous dermatitis associated with moisture (Acute) Type 2 diabetes mellitus (Acute) Morbid obesity (Acute) Skin ulcer of abdominal wall with fat layer exposed (Acute) Assessment: As stated above Plan: Wounds continue to show good improvement. He however now presents with extensive abdominal wall cellulitis. Patient with a history of recurrent abdominal wall cellulitis. Last significant episode was about 2 years ago however he has had other episodes in between which was managed on an outpatient basis. Patient states that he is very responsive to antibiotics. Debridement done as documented above, procedure was well tolerated. Continue Fibricol daily with adaptic over top to all ulcers. Doxycycline 100 mg twice daily and Keflex 500 mg twice daily for cellulitis. Patient and his strongly advised to go to the emergency room if they note any worsening of his current symptoms. Continue antifungal powder to intertrigo areas. Optimal blood sugar control. Increased protein supplements/dietary intake. Follow-up in 1 week. This note was generated with [employer] software. It may contain incorrect words, spelling, and punctuation that were not noted in checking the note before signing.
--- NOTE | 2017-08-03 17:03 | PN.PCM_ITS ---
(1) Intertriginous dermatitis associated with moisture Status: Acute Current Visit: Yes Code(s): L30.4 - Erythema intertrigo (2) Type 2 diabetes mellitus Status: Acute Current Visit: Yes Code(s): E11.9 - Type 2 diabetes mellitus without complications (3) Morbid obesity Status: Acute Current Visit: Yes Code(s): E66.01 - Morbid (severe) obesity due to excess calories (4) Skin ulcer of abdominal wall with fat layer exposed Status: Acute Current Visit: Yes Code(s): L98.492 - Non-pressure chronic ulcer of skin of other sites with fat layer exposed Type of Wound Date of Service: 08/03/17 Chief Complaint: Abdominal wall ulcers History of Wound: Mr. 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 Initial episode was said to be about 18 months ago and he has progressively had recurrent ulcers and some episodes of cellulitis. He has been applying cortisone cream and sprays to the area as recommended however no significant improvement. There is significant tenderness around the ulcers. He denies any discharge. Also has a sense of the most prominent between the abdominal folds. He feels well otherwise and denies chills, fever, loss of appetite, nausea, vomiting or change in his bowel habit. Progress of Wound: Ulcers are improving however, he now presents with abdominal wall tenderness and redness. He reports a history of recurrent abdominal wall celluitis with last significant episode about 2 years ago. He feel well otherwise and denies chills, fever, nausea, vomitting or any change in his bowel habit. - Physical Exam Vital Signs Temp Pulse Resp BP 97.5 F L 105 H 18 138/78 H 07/27/17 12:08 07/27/17 12:08 07/27/17 12:08 07/27/17 12:08 General: Alert, Oriented x3, Cooperative, No apparent distress HEENT: Atraumatic, Normocephalic Oral: Moist Mucosa Neck: Supple Lungs: Normal air movement Abdomen: Soft, Tender, - - Diffuse abdominal wall erythema Extremities: No clubbing Skin: Ulcer/ Wound Wound Measurements and Assessment WC - Nurse 1 - General Ulcer Measurement Start: 07/13/17 11:58 Freq: Status: Active Protocol: Activity Type Activity Date Activity User E-Sign Co-Sign Detail Recorded Client Recorded Date Recorded By Document 08/03/17 11:28 [facility] [id number] 08/03/17 11:51 [facility] 08/03/17 11:28 Wound Center Nurse 1 [Ulcer Assessment] #5 RT LATERAL ABDOMINAL FOLD -Combined with other wound No -Current Size (cm) - Length 0.5 -Current Size (cm) - Width 0.7 -Current Size (cm) - Depth 0.1 -Total Square Cm 0.35 -Photo Taken No -Epithelialization Small 1-33% -Tunneling No -Undermining/Tunneling No -Circular Undermining No -Exudate Amt Small (1-33%) -Exudate Type Sanguineous -Wound Margin Distinct, Outline Attached -Granulation Amt Large (67-100%) -Granulation Quality Red -Slough/Fibrin No -Necrosis Amt None Present (0 %) -Structure Exposed None/Limited to Skin Breakdown -Texture (Nesha-wound Skin Appearance) Scarring -Moisture (Nesha-wound Skin Appearance Assessed ) -Color (Nesha-wound Skin Appearance) Erythema -Temperature (Nesha-wound Skin No Abnormality Appearance) (Pt Warm) -Tenderness on Palpation (Nesha-wound Yes Skin Appearance) -Ulcer Cleansing Wound Cleanser -Foul Odor after Cleansing No -Anesthetic Used 5% Lidocaine Gel #4 RT MEDIAL ABDOMINAL FOLD -Combined with other wound No -Current Size (cm) - Length 0.6 -Current Size (cm) - Width 0.5 -Current Size (cm) - Depth 0.1 -Total Square Cm 0.30 -Photo Taken No -Epithelialization Medium 34-66% -Tunneling No -Undermining/Tunneling No -Circular Undermining No -Exudate Amt Small (1-33%) -Exudate Type Sanguineous -Wound Margin Distinct, Outline Attached -Granulation Amt Large (67-100%) -Granulation Quality Red -Slough/Fibrin No -Necrosis Amt None Present (0 %) -Structure Exposed N/A -Texture (Nesha-wound Skin Appearance) Scarring -Moisture (Nesha-wound Skin Appearance Assessed ) -Color (Nesha-wound Skin Appearance) Erythema -Temperature (Nesha-wound Skin No Abnormality Appearance) (Pt Warm) -Tenderness on Palpation (Nesha-wound Yes Skin Appearance) -Ulcer Cleansing Wound Cleanser -Foul Odor after Cleansing No -Anesthetic Used 5% Lidocaine Gel #3 RLQ -Combined with other wound No -Current Size (cm) - Length 1.4 -Current Size (cm) - Width 3 -Current Size (cm) - Depth 0.1 -Total Square Cm 4.2 -Photo Taken No -Epithelialization Small 1-33% -Tunneling No -Undermining/Tunneling No -Circular Undermining No -Exudate Amt Small (1-33%) -Exudate Type Sanguineous -Wound Margin Distinct, Outline Attached -Granulation Amt Large (67-100%) -Granulation Quality Red -Slough/Fibrin No -Necrosis Amt None Present (0 %) -Structure Exposed None/Limited to Skin Breakdown -Texture (Nesha-wound Skin Appearance) Scarring -Color (Nesha-wound Skin Appearance) Assessed Erythema -Temperature (Nesha-wound Skin No Abnormality Appearance) (Pt Warm) -Tenderness on Palpation (Nesha-wound Yes Skin Appearance) -Ulcer Cleansing Wound Cleanser -Foul Odor after Cleansing No -Anesthetic Used 5% Lidocaine Gel #1 LLQ -Combined with other wound No -Current Size (cm) - Length 1.7 -Current Size (cm) - Width 1.9 -Current Size (cm) - Depth 0.1 -Total Square Cm 3.23 -Photo Taken No -Epithelialization Small 1-33% -Tunneling No -Undermining/Tunneling No -Circular Undermining No -Exudate Amt Small (1-33%) -Exudate Type Sanguineous -Wound Margin Distinct, Outline Attached -Granulation Amt Large (67-100%) -Granulation Quality Red -Slough/Fibrin No -Necrosis Amt None Present (0 %) -Structure Exposed None/Limited to Skin Breakdown -Texture (Nesha-wound Skin Appearance) Scarring -Moisture (Nesha-wound Skin Appearance Assessed ) -Color (Nesha-wound Skin Appearance) Erythema -Temperature (Nesha-wound Skin No Abnormality Appearance) (Pt Warm) -Tenderness on Palpation (Nesha-wound No Skin Appearance) -Ulcer Cleansing Wound Cleanser -Foul Odor after Cleansing No -Anesthetic Used 5% Lidocaine Gel WC - Nurse 2 - General Ulcer CM Notes Start: 07/13/17 11:58 Freq: Status: Active Protocol: Activity Type Activity Date Activity User E-Sign Co-Sign Detail Recorded Client Recorded Date Recorded By Document 05/24/18 12:54 DV [id number] 08/03/17 12:58 DV 08/03/17 12:54 Wound Center Nurse 2 [Procedure/Treatment] #5 RT LATERAL ABDOMINAL FOLD -Time 12:54 -Correct Patient Yes -Correct Side, Site, Position Yes -Correct Procedure Yes -Procedure Performed Yes -Type of Procedure Debridement -Clinical Debridement Subcutaneous -Post Debridement Size (cm) - Length 0.4 -Post Debridement Size (cm) - Width 0.6 -Post Debridement Size (cm) - Depth 0.1 -Total Square Cm 0.24 -Wound/Ulcer Outcome Not Healed -Ulcer Cleansing Rinsed/ Irrigated with Saline -Foul Odor after Cleansing No -Bioengineered Tissue No -Bleeding Controlled with Pressure -Treatment Response Procedure Tolerated Well #4 RT MEDIAL ABDOMINAL FOLD -Time 12:55 -Correct Patient Yes -Correct Side, Site, Position Yes -Correct Procedure Yes -Procedure Performed Yes -Type of Procedure Debridement -Clinical Debridement Subcutaneous -Post Debridement Size (cm) - Length 0.3 -Post Debridement Size (cm) - Width 0.3 -Post Debridement Size (cm) - Depth 0.1 -Total Square Cm 0.09 -Wound/Ulcer Outcome Not Healed -Ulcer Cleansing Rinsed/ Irrigated with Saline -Foul Odor after Cleansing No -Bioengineered Tissue No -Bleeding Controlled with Pressure -Treatment Response Procedure Tolerated Well #3 RLQ -Time 12:57 -Correct Patient Yes -Correct Side, Site, Position Yes -Correct Procedure Yes -Procedure Performed Yes -Type of Procedure Debridement -Clinical Debridement Subcutaneous -Post Debridement Size (cm) - Length 1.0 -Post Debridement Size (cm) - Width 3.0 -Post Debridement Size (cm) - Depth 0.1 -Total Square Cm 3.00 -Wound/Ulcer Outcome Not Healed -Ulcer Cleansing Rinsed/ Irrigated with Saline -Foul Odor after Cleansing No -Bioengineered Tissue No -Bleeding Controlled with Pressure -Treatment Response Procedure Tolerated Well #1 LLQ -Time 12:57 -Correct Patient Yes -Correct Side, Site, Position Yes -Correct Procedure Yes -Procedure Performed Yes -Type of Procedure Debridement -Clinical Debridement Subcutaneous -Post Debridement Size (cm) - Length 1.5 -Post Debridement Size (cm) - Width 1.9 -Post Debridement Size (cm) - Depth 0.1 -Total Square Cm 2.85 -Wound/Ulcer Outcome Not Healed -Ulcer Cleansing Rinsed/ Irrigated with Saline -Foul Odor after Cleansing No -Bioengineered Tissue No -Bleeding Controlled with Pressure -Treatment Response Procedure Tolerated Well [See Physician Procedure note for Specifics] Pain Scale: 0-10 Numeric [Pain] -Is Patient Pain Free? Yes Musculoskeletal: No Muscle Wasting Neurological: Cranial nerves II-XII grossly intact Psych/Mental Status: Normal Affect Debridement Note Post-Debridement Measurements/Treatment WC - Nurse 2 - General Ulcer CM Notes Start: 07/13/17 11:58 Freq: Status: Active Protocol: Activity Type Activity Date Activity User E-Sign Co-Sign Detail Recorded Client Recorded Date Recorded By Document 07/13/17 13:40 DV [id number] 07/13/17 21:25 DV Document 07/20/17 12:53 DV [id number] 07/20/17 12:58 DV Document 07/27/17 12:45 DV [id number] 07/27/17 12:50 DV Document 08/03/17 12:54 DV [id number] 08/03/17 12:58 DV 07/13/17 07/20/17 07/27/17 13:40 12:53 12:45 Wound Center Nurse 2 #5 RT LATERAL ABDOMINAL FOLD -Time 13:40 12:53 12:47 -Correct Patient Yes Yes Yes -Correct Side, Site, Position Yes Yes Yes -Correct Procedure Yes Yes Yes -Procedure Performed Yes Yes Yes -Type of Procedure Debridement Debridement Debridement -Clinical Debridement Subcutaneous Subcutaneous Subcutaneous -Post Debridement Size (cm) - Length 1.5 0.9 0.5 -Post Debridement Size (cm) - Width 1.5 0.5 0.9 -Post Debridement Size (cm) - Depth 0.1 0.1 0.1 -Total Square Cm 2.25 0.45 0.45 -Wound/Ulcer Outcome Not Healed Not Healed Not Healed -Ulcer Cleansing Rinsed/ Rinsed/ Irrigated with Irrigated with Saline Saline -Foul Odor after Cleansing No No -Bioengineered Tissue No No -Bleeding Controlled with Pressure NA -Treatment Response Procedure Procedure Tolerated Well Tolerated Well #4 RT MEDIAL ABDOMINAL FOLD -Time 13:40 12:54 12:47 -Correct Patient Yes Yes Yes -Correct Side, Site, Position Yes Yes Yes -Correct Procedure Yes Yes Yes -Procedure Performed Yes Yes Yes -Type of Procedure Debridement Debridement Debridement -Clinical Debridement Subcutaneous Subcutaneous Subcutaneous -Post Debridement Size (cm) - Length 1.0 0.8 0.7 -Post Debridement Size (cm) - Width 1.5 0.9 1.0 -Post Debridement Size (cm) - Depth 0.2 0.2 0.1 -Total Square Cm 1.50 0.72 0.70 -Wound/Ulcer Outcome Not Healed Not Healed Not Healed -Ulcer Cleansing Rinsed/ Rinsed/ Rinsed/ Irrigated with Irrigated with Irrigated with Saline Saline Saline -Foul Odor after Cleansing No No No -Bioengineered Tissue No No No -Bleeding Controlled with Pressure Pressure NA -Treatment Response Procedure Procedure Procedure Tolerated Well Tolerated Well Tolerated Well #3 RLQ -Time 13:40 12:55 12:45 -Correct Patient Yes Yes Yes -Correct Side, Site, Position Yes Yes Yes -Correct Procedure Yes Yes Yes -Procedure Performed Yes Yes Yes -Type of Procedure Debridement Debridement Debridement -Clinical Debridement Subcutaneous Subcutaneous Subcutaneous -Post Debridement Size (cm) - Length 2.7 2.9 1.6 -Post Debridement Size (cm) - Width 4.5 4.8 3.3 -Post Debridement Size (cm) - Depth 0.2 0.1 0.1 -Total Square Cm 12.15 13.92 5.28 -Wound/Ulcer Outcome Not Healed Not Healed Not Healed -Ulcer Cleansing Rinsed/ Rinsed/ Rinsed/ Irrigated with Irrigated with Irrigated with Saline Saline Saline -Foul Odor after Cleansing No No No -Bioengineered Tissue No No No -Bleeding Controlled with Pressure Pressure NA -Treatment Response Procedure Procedure Procedure Tolerated Well Tolerated Well Tolerated Well #2 LEFT ABDOMINAL FOLD -Time 13:40 12:55 -Correct Patient Yes Yes -Correct Side, Site, Position Yes -Correct Procedure Yes -Procedure Performed Yes No -Type of Procedure Debridement -Clinical Debridement Subcutaneous -Post Debridement Size (cm) - Length 0.4 0 -Post Debridement Size (cm) - Width 1.0 0 -Post Debridement Size (cm) - Depth 0.1 0 -Total Square Cm 0.40 0 -Wound/Ulcer Outcome Not Healed Healed- Epithelialized -Ulcer Cleansing Rinsed/ Irrigated with Saline -Foul Odor after Cleansing No -Bioengineered Tissue No -Bleeding Controlled with Pressure -Treatment Response Procedure Tolerated Well #1 LLQ -Time 13:40 12:56 12:46 -Correct Patient Yes Yes Yes -Correct Side, Site, Position Yes Yes Yes -Correct Procedure Yes Yes Yes -Procedure Performed Yes Yes Yes -Type of Procedure Debridement Debridement Debridement -Clinical Debridement Subcutaneous Subcutaneous Subcutaneous -Post Debridement Size (cm) - Length 1.8 1.9 1.7 -Post Debridement Size (cm) - Width 3.2 2.4 2.4 -Post Debridement Size (cm) - Depth 0.2 0.1 0.1 -Total Square Cm 5.76 4.56 4.08 -Wound/Ulcer Outcome Not Healed Not Healed Not Healed -Ulcer Cleansing Rinsed/ Rinsed/ Rinsed/ Irrigated with Irrigated with Irrigated with Saline Saline Saline -Foul Odor after Cleansing No No No -Bioengineered Tissue No No No -Bleeding Controlled with Pressure Pressure NA -Treatment Response Procedure Procedure Procedure Tolerated Well Tolerated Well Tolerated Well Pain Scale: 0-10 Numeric Is Patient Pain Free? No Yes Yes LOWER ABD -Description Sharp Burning -Intensity 6 -Duration (hours) Acute -Pain Behavior Facial Grimacing -Pain Aggravating Factors ADL's Changing Position Exercise/ Activity Sitting Walking Debridement -Alleviating Factors/Interventions None -Effectiveness of Alleviating Factor/ Not effective Intervention 08/03/17 12:54 Wound Center Nurse 2 #5 RT LATERAL ABDOMINAL FOLD -Time 12:54 -Correct Patient Yes -Correct Side, Site, Position Yes -Correct Procedure Yes -Procedure Performed Yes -Type of Procedure Debridement -Clinical Debridement Subcutaneous -Post Debridement Size (cm) - Length 0.4 -Post Debridement Size (cm) - Width 0.6 -Post Debridement Size (cm) - Depth 0.1 -Total Square Cm 0.24 -Wound/Ulcer Outcome Not Healed -Ulcer Cleansing Rinsed/ Irrigated with Saline -Foul Odor after Cleansing No -Bioengineered Tissue No -Bleeding Controlled with Pressure -Treatment Response Procedure Tolerated Well #4 RT MEDIAL ABDOMINAL FOLD -Time 12:55 -Correct Patient Yes -Correct Side, Site, Position Yes -Correct Procedure Yes -Procedure Performed Yes -Type of Procedure Debridement -Clinical Debridement Subcutaneous -Post Debridement Size (cm) - Length 0.3 -Post Debridement Size (cm) - Width 0.3 -Post Debridement Size (cm) - Depth 0.1 -Total Square Cm 0.09 -Wound/Ulcer Outcome Not Healed -Ulcer Cleansing Rinsed/ Irrigated with Saline -Foul Odor after Cleansing No -Bioengineered Tissue No -Bleeding Controlled with Pressure -Treatment Response Procedure Tolerated Well #3 RLQ -Time 12:57 -Correct Patient Yes -Correct Side, Site, Position Yes -Correct Procedure Yes -Procedure Performed Yes -Type of Procedure Debridement -Clinical Debridement Subcutaneous -Post Debridement Size (cm) - Length 1.0 -Post Debridement Size (cm) - Width 3.0 -Post Debridement Size (cm) - Depth 0.1 -Total Square Cm 3.00 -Wound/Ulcer Outcome Not Healed -Ulcer Cleansing Rinsed/ Irrigated with Saline -Foul Odor after Cleansing No -Bioengineered Tissue No -Bleeding Controlled with Pressure -Treatment Response Procedure Tolerated Well #2 LEFT ABDOMINAL FOLD -Time -Correct Patient -Correct Side, Site, Position -Correct Procedure -Procedure Performed -Type of Procedure -Clinical Debridement -Post Debridement Size (cm) - Length -Post Debridement Size (cm) - Width -Post Debridement Size (cm) - Depth -Total Square Cm -Wound/Ulcer Outcome -Ulcer Cleansing -Foul Odor after Cleansing -Bioengineered Tissue -Bleeding Controlled with -Treatment Response #1 LLQ -Time 12:57 -Correct Patient Yes -Correct Side, Site, Position Yes -Correct Procedure Yes -Procedure Performed Yes -Type of Procedure Debridement -Clinical Debridement Subcutaneous -Post Debridement Size (cm) - Length 1.5 -Post Debridement Size (cm) - Width 1.9 -Post Debridement Size (cm) - Depth 0.1 -Total Square Cm 2.85 -Wound/Ulcer Outcome Not Healed -Ulcer Cleansing Rinsed/ Irrigated with Saline -Foul Odor after Cleansing No -Bioengineered Tissue No -Bleeding Controlled with Pressure -Treatment Response Procedure Tolerated Well Pain Scale: 0-10 Numeric Is Patient Pain Free? Yes LOWER ABD -Description -Intensity -Duration (hours) -Pain Behavior -Pain Aggravating Factors -Alleviating Factors/Interventions -Effectiveness of Alleviating Factor/ Intervention Wound debrided: Left Lower abdomen ( Superior ) Wound Grade/Stage: Stage II Type of Debridement: Excisional debridement Anesthesia Used: 5% Lidocaine Gel Depth: Down to and including healthy tissue, in the subcutaneous layer Percentage of wound debrided: 100 Instrument Used: 5mm curette Tissue Removed: Slough and devitalized tissue Severity: Fat Layer Exposed Amount of bleeding with debridement: Mild Bleeding Controlled with: Pressure Patient tolerated procedure well - Additional Wound Wound debrided: Right lower abdomen ( Superior ) Wound Grade/Stage: Stage II Type of Debridement: Excisional debridement Anesthesia Used: 5% Lidocaine Gel Depth: Down to and including healthy tissue, in the subcutaneous layer Percentage of wound debrided: 100 Instrument Used: 5mm curette Tissue Removed: Slough and devitalized tissue Severity: Fat Layer Exposed Amount of bleeding with debridement: Mild Bleeding Controlled with: Pressure Patient tolerated procedure: Patient tolerated procedure well - Additional Wound Wound debrided: Right abdominal fold ( Medial ) Wound Grade/Stage: Stage II Type of Debridement: Excisional debridement Anesthesia Used: 5% Lidocaine Gel Depth: Down to and including healthy tissue, in the subcutaneous layer Percentage of wound debrided: 100 Instrument Used: 5mm curette Tissue Removed: Slough and devitalized tissue Severity: Fat Layer Exposed Amount of bleeding with debridement: Mild Bleeding Controlled with: Pressure Patient tolerated procedure: Patient tolerated procedure well - Additional Wound Wound debrided: Right abdominal fold ( Lateral ) Wound Grade/Stage: Stage II Type of Debridement: Excisional debridement Anesthesia Used: 5% Lidocaine Gel Depth: Down to and including healthy tissue, in the subcutaneous layer Percentage of wound debrided: 100 Instrument Used: 5mm curette Tissue Removed: Slough and devitalized tissue Severity: Fat Layer Exposed Amount of bleeding with debridement: Mild Bleeding Controlled with: Pressure Patient tolerated procedure: Patient tolerated procedure well Assessment/Plan Active Problems Intertriginous dermatitis associated with moisture (Acute) Type 2 diabetes mellitus (Acute) Morbid obesity (Acute) Skin ulcer of abdominal wall with fat layer exposed (Acute) Assessment: As stated above Plan: Wounds continue to show good improvement. He however now presents with extensive abdominal wall cellulitis. Patient with a history of recurrent abdominal wall cellulitis. Last significant episode was about 2 years ago however he has had other episodes in between which was managed on an outpatient basis. Patient states that he is very responsive to antibiotics. Debridement done as documented above, procedure was well tolerated. Continue Fibricol daily with adaptic over top to all ulcers. Doxycycline 100 mg twice daily and Keflex 500 mg twice daily for cellulitis. Patient and his strongly advised to go to the emergency room if they note any worsening of his current symptoms. Continue antifungal powder to intertrigo areas. Optimal blood sugar control. Increased protein supplements/dietary intake. Follow-up in 1 week. This note was generated with [email or web address] software. It may contain incorrect words, spelling, and punctuation that were not noted in checking the note before signing.
[2017-08-10 12:53] VITALS: BP 154/72; PULSE 78; RESP 18; TEMP 36.6; BMI 42.6
--- NOTE | 2017-08-10 13:46 | PCM.WC.PN ---
(1) Intertriginous dermatitis associated with moisture Status: Acute Current Visit: Yes Code(s): L30.4 - Erythema intertrigo (2) Type 2 diabetes mellitus Status: Acute Current Visit: Yes Code(s): E11.9 - Type 2 diabetes mellitus without complications (3) Morbid obesity Status: Acute Current Visit: Yes Code(s): E66.01 - Morbid (severe) obesity due to excess calories (4) Skin ulcer of abdominal wall with fat layer exposed Status: Acute Current Visit: Yes Code(s): L98.492 - Non-pressure chronic ulcer of skin of other sites with fat layer exposed Type of Wound Date of Service: 08/10/17 Chief Complaint: Abdominal wall ulcers History of Wound: Mr. 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 Initial episode was said to be about 18 months ago and he has progressively had recurrent ulcers and some episodes of cellulitis. He has been applying cortisone cream and sprays to the area as recommended however no significant improvement. There is significant tenderness around the ulcers. He denies any discharge. Also has a sense of the most prominent between the abdominal folds. He feels well otherwise and denies chills, fever, loss of appetite, nausea, vomiting or change in his bowel habit. Progress of Wound: Improving. Cellulitis has resolved. - Physical Exam Vital Signs Temp Pulse Resp BP 98 F 78 18 154/72 H 08/10/17 12:53 08/10/17 12:53 08/10/17 12:53 08/10/17 12:53 General: Alert, Oriented x3, Cooperative, No apparent distress HEENT: Atraumatic, Normocephalic Oral: Moist Mucosa Neck: Supple Lungs: Normal air movement Cardiovascular: Regular rate Abdomen: Non Tender, Obese Extremities: No cyanosis Wound Measurements and Assessment WC - Nurse 1 - General Ulcer Measurement Start: 07/13/17 11:58 Freq: Status: Active Protocol: Activity Type Activity Date Activity User E-Sign Co-Sign Detail Recorded Client Recorded Date Recorded By Document 08/10/17 12:53 RB [id number] 08/10/17 13:03 RB 08/10/17 12:53 Wound Center Nurse 1 [Ulcer Assessment] #5 RT LATERAL ABDOMINAL FOLD -Combined with other wound No -Current Size (cm) - Length 0.1 -Current Size (cm) - Width 0.1 -Current Size (cm) - Depth 0.1 -Total Square Cm 0.01 -Photo Taken No -Tunneling No -Undermining/Tunneling No -Circular Undermining No -Exudate Amt None Present (0 %) -Wound Margin Distinct, Outline Attached -Granulation Amt Large (67-100%) -Granulation Quality [place] -Slough/Fibrin No -Structure Exposed N/A -Texture (Nesha-wound Skin Appearance) Assessed Excoriation -Moisture (Nesha-wound Skin Appearance Assessed ) -Color (Nesha-wound Skin Appearance) Assessed -Temperature (Nesha-wound Skin No Abnormality Appearance) (Pt Warm) -Tenderness on Palpation (Nesha-wound No Skin Appearance) -Ulcer Cleansing Rinsed/ Irrigated with Saline -Foul Odor after Cleansing No #4 RT MEDIAL ABDOMINAL FOLD -Combined with other wound No -Current Size (cm) - Length 0.1 -Current Size (cm) - Width 0.1 -Current Size (cm) - Depth 0.1 -Total Square Cm 0.01 -Photo Taken No -Tunneling No -Undermining/Tunneling No -Circular Undermining No -Exudate Amt None Present (0 %) -Wound Margin Distinct, Outline Attached -Granulation Amt Large (67-100%) -Granulation Quality [place] -Slough/Fibrin No -Necrosis Amt None Present (0 %) -Structure Exposed N/A -Texture (Nesha-wound Skin Appearance) Assessed Excoriation -Moisture (Nesha-wound Skin Appearance Assessed ) -Color (Nesha-wound Skin Appearance) Assessed -Temperature (Nesha-wound Skin No Abnormality Appearance) (Pt Warm) -Tenderness on Palpation (Nesha-wound No Skin Appearance) -Ulcer Cleansing Rinsed/ Irrigated with Saline -Foul Odor after Cleansing No #3 RLQ -Combined with other wound No -Current Size (cm) - Length 1.5 -Current Size (cm) - Width 2 -Current Size (cm) - Depth 0.1 -Total Square Cm 3.0 -Photo Taken No -Tunneling No -Undermining/Tunneling No -Circular Undermining No -Classification - Thickness Full Thickness without Exposed Support Structure -Exudate Amt Small (1-33%) -Exudate Type Serosanguineous -Wound Margin Distinct, Outline Attached -Granulation Amt Large (67-100%) -Granulation Quality [place] -Slough/Fibrin Yes -Necrosis Amt Small (1-33%) -Necrotic Tissue Type Adherent Slough -Structure Exposed N/A -Texture (Nesha-wound Skin Appearance) Assessed Excoriation -Moisture (Nesha-wound Skin Appearance Assessed ) -Color (Nesha-wound Skin Appearance) Assessed -Temperature (Nesha-wound Skin No Abnormality Appearance) (Pt Warm) -Tenderness on Palpation (Nesha-wound No Skin Appearance) -Ulcer Cleansing Rinsed/ Irrigated with Saline -Foul Odor after Cleansing No -Anesthetic Used 4% Lidocaine Solution #1 LLQ -Combined with other wound No -Current Size (cm) - Length 1.7 -Current Size (cm) - Width 1.1 -Current Size (cm) - Depth 0.1 -Total Square Cm 1.87 -Photo Taken No -Tunneling No -Undermining/Tunneling No -Circular Undermining No -Classification - Thickness Full Thickness without Exposed Support Structure -Exudate Amt Small (1-33%) -Exudate Type Serosanguineous -Wound Margin Distinct, Outline Attached -Granulation Amt Medium (34-66%) -Granulation Quality [place] -Necrosis Amt Small (1-33%) -Necrotic Tissue Type Adherent Slough -Structure Exposed N/A -Texture (Nesha-wound Skin Appearance) Assessed Excoriation -Moisture (Nesha-wound Skin Appearance Assessed ) -Color (Nesha-wound Skin Appearance) Assessed -Temperature (Nesha-wound Skin No Abnormality Appearance) (Pt Warm) -Tenderness on Palpation (Nesha-wound No Skin Appearance) -Ulcer Cleansing Rinsed/ Irrigated with Saline -Foul Odor after Cleansing No -Anesthetic Used 4% Lidocaine Solution WC - Nurse 2 - General Ulcer CM Notes Start: 07/13/17 11:58 Freq: Status: Active Protocol: Activity Type Activity Date Activity User E-Sign Co-Sign Detail Recorded Client Recorded Date Recorded By Document 08/10/17 13:14 DV [id number] 08/10/17 13:18 DV 08/10/17 13:14 Wound Center Nurse 2 [Procedure/Treatment] #5 RT LATERAL ABDOMINAL FOLD -Time 13:17 -Correct Patient Yes -Procedure Performed No -Post Debridement Size (cm) - Length 0 -Post Debridement Size (cm) - Width 0 -Post Debridement Size (cm) - Depth 0 -Total Square Cm 0 -Wound/Ulcer Outcome Healed- Epithelialized #4 RT MEDIAL ABDOMINAL FOLD -Time 13:17 -Correct Patient Yes -Procedure Performed No -Post Debridement Size (cm) - Length 0 -Post Debridement Size (cm) - Width 0 -Post Debridement Size (cm) - Depth 0 -Total Square Cm 0 -Wound/Ulcer Outcome Healed- Epithelialized #3 RLQ -Time 13:16 -Correct Patient Yes -Correct Side, Site, Position Yes -Correct Procedure Yes -Procedure Performed Yes -Type of Procedure Debridement -Clinical Debridement Subcutaneous -Post Debridement Size (cm) - Length 1.4 -Post Debridement Size (cm) - Width 2.0 -Post Debridement Size (cm) - Depth 0.1 -Total Square Cm 2.80 -Wound/Ulcer Outcome Not Healed #1 LLQ -Time 13:15 -Correct Patient Yes -Correct Side, Site, Position Yes -Correct Procedure Yes -Procedure Performed Yes -Type of Procedure Debridement -Clinical Debridement Subcutaneous -Post Debridement Size (cm) - Length 1.0 -Post Debridement Size (cm) - Width 1.5 -Post Debridement Size (cm) - Depth 0.1 -Total Square Cm 1.50 -Wound/Ulcer Outcome Not Healed -Ulcer Cleansing Rinsed/ Irrigated with Saline -Foul Odor after Cleansing No -Bioengineered Tissue No -Bleeding Controlled with Pressure -Treatment Response Procedure Tolerated Well [See Physician Procedure note for Specifics] Pain Scale: 0-10 Numeric [Pain] -Is Patient Pain Free? Yes Musculoskeletal: No Muscle Wasting Neurological: Cranial nerves II-XII grossly intact Psych/Mental Status: Normal Affect Debridement Note Post-Debridement Measurements/Treatment WC - Nurse 2 - General Ulcer CM Notes Start: 07/13/17 11:58 Freq: Status: Active Protocol: Activity Type Activity Date Activity User E-Sign Co-Sign Detail Recorded Client Recorded Date Recorded By Document 07/13/17 13:40 DV [id number] 07/13/17 21:25 DV Document 07/20/17 12:53 DV [id number] 07/20/17 12:58 DV Document 07/27/17 12:45 DV [id number] 07/27/17 12:50 DV Document 08/03/17 12:54 DV [id number] 08/03/17 12:58 DV Document 08/10/17 13:14 DV [id number] 08/10/17 13:18 DV 07/13/17 07/20/17 07/27/17 13:40 12:53 12:45 Wound Center Nurse 2 #5 RT LATERAL ABDOMINAL FOLD -Time 13:40 12:53 12:47 -Correct Patient Yes Yes Yes -Correct Side, Site, Position Yes Yes Yes -Correct Procedure Yes Yes Yes -Procedure Performed Yes Yes Yes -Type of Procedure Debridement Debridement Debridement -Clinical Debridement Subcutaneous Subcutaneous Subcutaneous -Post Debridement Size (cm) - Length 1.5 0.9 0.5 -Post Debridement Size (cm) - Width 1.5 0.5 0.9 -Post Debridement Size (cm) - Depth 0.1 0.1 0.1 -Total Square Cm 2.25 0.45 0.45 -Wound/Ulcer Outcome Not Healed Not Healed Not Healed -Ulcer Cleansing Rinsed/ Rinsed/ Irrigated with Irrigated with Saline Saline -Foul Odor after Cleansing No No -Bioengineered Tissue No No -Bleeding Controlled with Pressure NA -Treatment Response Procedure Procedure Tolerated Well Tolerated Well #4 RT MEDIAL ABDOMINAL FOLD -Time 13:40 12:54 12:47 -Correct Patient Yes Yes Yes -Correct Side, Site, Position Yes Yes Yes -Correct Procedure Yes Yes Yes -Procedure Performed Yes Yes Yes -Type of Procedure Debridement Debridement Debridement -Clinical Debridement Subcutaneous Subcutaneous Subcutaneous -Post Debridement Size (cm) - Length 1.0 0.8 0.7 -Post Debridement Size (cm) - Width 1.5 0.9 1.0 -Post Debridement Size (cm) - Depth 0.2 0.2 0.1 -Total Square Cm 1.50 0.72 0.70 -Wound/Ulcer Outcome Not Healed Not Healed Not Healed -Ulcer Cleansing Rinsed/ Rinsed/ Rinsed/ Irrigated with Irrigated with Irrigated with Saline Saline Saline -Foul Odor after Cleansing No No No -Bioengineered Tissue No No No -Bleeding Controlled with Pressure Pressure NA -Treatment Response Procedure Procedure Procedure Tolerated Well Tolerated Well Tolerated Well #3 RLQ -Time 13:40 12:55 12:45 -Correct Patient Yes Yes Yes -Correct Side, Site, Position Yes Yes Yes -Correct Procedure Yes Yes Yes -Procedure Performed Yes Yes Yes -Type of Procedure Debridement Debridement Debridement -Clinical Debridement Subcutaneous Subcutaneous Subcutaneous -Post Debridement Size (cm) - Length 2.7 2.9 1.6 -Post Debridement Size (cm) - Width 4.5 4.8 3.3 -Post Debridement Size (cm) - Depth 0.2 0.1 0.1 -Total Square Cm 12.15 13.92 5.28 -Wound/Ulcer Outcome Not Healed Not Healed Not Healed -Ulcer Cleansing Rinsed/ Rinsed/ Rinsed/ Irrigated with Irrigated with Irrigated with Saline Saline Saline -Foul Odor after Cleansing No No No -Bioengineered Tissue No No No -Bleeding Controlled with Pressure Pressure NA -Treatment Response Procedure Procedure Procedure Tolerated Well Tolerated Well Tolerated Well #2 LEFT ABDOMINAL FOLD -Time 13:40 12:55 -Correct Patient Yes Yes -Correct Side, Site, Position Yes -Correct Procedure Yes -Procedure Performed Yes No -Type of Procedure Debridement -Clinical Debridement Subcutaneous -Post Debridement Size (cm) - Length 0.4 0 -Post Debridement Size (cm) - Width 1.0 0 -Post Debridement Size (cm) - Depth 0.1 0 -Total Square Cm 0.40 0 -Wound/Ulcer Outcome Not Healed Healed- Epithelialized -Ulcer Cleansing Rinsed/ Irrigated with Saline -Foul Odor after Cleansing No -Bioengineered Tissue No -Bleeding Controlled with Pressure -Treatment Response Procedure Tolerated Well #1 LLQ -Time 13:40 12:56 12:46 -Correct Patient Yes Yes Yes -Correct Side, Site, Position Yes Yes Yes -Correct Procedure Yes Yes Yes -Procedure Performed Yes Yes Yes -Type of Procedure Debridement Debridement Debridement -Clinical Debridement Subcutaneous Subcutaneous Subcutaneous -Post Debridement Size (cm) - Length 1.8 1.9 1.7 -Post Debridement Size (cm) - Width 3.2 2.4 2.4 -Post Debridement Size (cm) - Depth 0.2 0.1 0.1 -Total Square Cm 5.76 4.56 4.08 -Wound/Ulcer Outcome Not Healed Not Healed Not Healed -Ulcer Cleansing Rinsed/ Rinsed/ Rinsed/ Irrigated with Irrigated with Irrigated with Saline Saline Saline -Foul Odor after Cleansing No No No -Bioengineered Tissue No No No -Bleeding Controlled with Pressure Pressure NA -Treatment Response Procedure Procedure Procedure Tolerated Well Tolerated Well Tolerated Well Pain Scale: 0-10 Numeric Is Patient Pain Free? No Yes Yes LOWER ABD -Description Sharp Burning -Intensity 6 -Duration (hours) Acute -Pain Behavior Facial Grimacing -Pain Aggravating Factors ADL's Changing Position Exercise/ Activity Sitting Walking Debridement -Alleviating Factors/Interventions None -Effectiveness of Alleviating Factor/ Not effective Intervention 08/03/17 08/10/17 12:54 13:14 Wound Center Nurse 2 #5 RT LATERAL ABDOMINAL FOLD -Time 12:54 13:17 -Correct Patient Yes Yes -Correct Side, Site, Position Yes -Correct Procedure Yes -Procedure Performed Yes No -Type of Procedure Debridement -Clinical Debridement Subcutaneous -Post Debridement Size (cm) - Length 0.4 0 -Post Debridement Size (cm) - Width 0.6 0 -Post Debridement Size (cm) - Depth 0.1 0 -Total Square Cm 0.24 0 -Wound/Ulcer Outcome Not Healed Healed- Epithelialized -Ulcer Cleansing Rinsed/ Irrigated with Saline -Foul Odor after Cleansing No -Bioengineered Tissue No -Bleeding Controlled with Pressure -Treatment Response Procedure Tolerated Well #4 RT MEDIAL ABDOMINAL FOLD -Time 12:55 13:17 -Correct Patient Yes Yes -Correct Side, Site, Position Yes -Correct Procedure Yes -Procedure Performed Yes No -Type of Procedure Debridement -Clinical Debridement Subcutaneous -Post Debridement Size (cm) - Length 0.3 0 -Post Debridement Size (cm) - Width 0.3 0 -Post Debridement Size (cm) - Depth 0.1 0 -Total Square Cm 0.09 0 -Wound/Ulcer Outcome Not Healed Healed- Epithelialized -Ulcer Cleansing Rinsed/ Irrigated with Saline -Foul Odor after Cleansing No -Bioengineered Tissue No -Bleeding Controlled with Pressure -Treatment Response Procedure Tolerated Well #3 RLQ -Time 12:57 13:16 -Correct Patient Yes Yes -Correct Side, Site, Position Yes Yes -Correct Procedure Yes Yes -Procedure Performed Yes Yes -Type of Procedure Debridement Debridement -Clinical Debridement Subcutaneous Subcutaneous -Post Debridement Size (cm) - Length 1.0 1.4 -Post Debridement Size (cm) - Width 3.0 2.0 -Post Debridement Size (cm) - Depth 0.1 0.1 -Total Square Cm 3.00 2.80 -Wound/Ulcer Outcome Not Healed Not Healed -Ulcer Cleansing Rinsed/ Irrigated with Saline -Foul Odor after Cleansing No -Bioengineered Tissue No -Bleeding Controlled with Pressure -Treatment Response Procedure Tolerated Well #2 LEFT ABDOMINAL FOLD -Time -Correct Patient -Correct Side, Site, Position -Correct Procedure -Procedure Performed -Type of Procedure -Clinical Debridement -Post Debridement Size (cm) - Length -Post Debridement Size (cm) - Width -Post Debridement Size (cm) - Depth -Total Square Cm -Wound/Ulcer Outcome -Ulcer Cleansing -Foul Odor after Cleansing -Bioengineered Tissue -Bleeding Controlled with -Treatment Response #1 LLQ -Time 12:57 13:15 -Correct Patient Yes Yes -Correct Side, Site, Position Yes Yes -Correct Procedure Yes Yes -Procedure Performed Yes Yes -Type of Procedure Debridement Debridement -Clinical Debridement Subcutaneous Subcutaneous -Post Debridement Size (cm) - Length 1.5 1.0 -Post Debridement Size (cm) - Width 1.9 1.5 -Post Debridement Size (cm) - Depth 0.1 0.1 -Total Square Cm 2.85 1.50 -Wound/Ulcer Outcome Not Healed Not Healed -Ulcer Cleansing Rinsed/ Rinsed/ Irrigated with Irrigated with Saline Saline -Foul Odor after Cleansing No No -Bioengineered Tissue No No -Bleeding Controlled with Pressure Pressure -Treatment Response Procedure Procedure Tolerated Well Tolerated Well Pain Scale: 0-10 Numeric Is Patient Pain Free? Yes Yes LOWER ABD -Description -Intensity -Duration (hours) -Pain Behavior -Pain Aggravating Factors -Alleviating Factors/Interventions -Effectiveness of Alleviating Factor/ Intervention Wound debrided: Left sided abdominal wound ( [place] ) Wound Grade/Stage: Stage II Type of Debridement: Excisional debridement Anesthesia Used: 4% Lidocaine Solution Depth: Down to and including healthy tissue, in the subcutaneous layer Percentage of wound debrided: 100 Instrument Used: 5mm curette Tissue Removed: Slough and devitalized tissue. Severity: Fat Layer Exposed Amount of bleeding with debridement: Mild Bleeding Controlled with: Pressure Patient tolerated procedure well - Additional Wound Wound debrided: Right lower abdominal wound ( [place] ) Wound Grade/Stage: Stage II Type of Debridement: Excisional debridement Anesthesia Used: 4% Lidocaine Solution Depth: Down to and including healthy tissue, in the subcutaneous layer Percentage of wound debrided: 100 Instrument Used: 5mm curette Tissue Removed: Slough and devitalized tissue Severity: Fat Layer Exposed Amount of bleeding with debridement: Mild Bleeding Controlled with: Pressure Patient tolerated procedure: Patient tolerated procedure well Assessment/Plan Active Problems Intertriginous dermatitis associated with moisture (Acute) Type 2 diabetes mellitus (Acute) Morbid obesity (Acute) Skin ulcer of abdominal wall with fat layer exposed (Acute) Assessment: As stated above Plan: Wounds continue to show good improvement. Abdominal wall cellulitis has now resolved. Debridement done as documented above, procedure was well tolerated. Continue Fibricol daily with adaptic over top to all ulcers. Continue antifungal powder to intertrigo areas. Optimal blood sugar control. Increased protein supplements/dietary intake. Follow-up in 1 week. This note was generated with [employer] dictation software. It may contain incorrect words, spelling, and punctuation that were not noted in checking the note before signing.
--- NOTE | 2017-08-10 13:50 | PN.PCM_ITS ---
(1) Intertriginous dermatitis associated with moisture Status: Acute Current Visit: Yes Code(s): L30.4 - Erythema intertrigo (2) Type 2 diabetes mellitus Status: Acute Current Visit: Yes Code(s): E11.9 - Type 2 diabetes mellitus without complications (3) Morbid obesity Status: Acute Current Visit: Yes Code(s): E66.01 - Morbid (severe) obesity due to excess calories (4) Skin ulcer of abdominal wall with fat layer exposed Status: Acute Current Visit: Yes Code(s): L98.492 - Non-pressure chronic ulcer of skin of other sites with fat layer exposed Type of Wound Date of Service: 08/10/17 Chief Complaint: Abdominal wall ulcers History of Wound: Mr. 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 Initial episode was said to be about 18 months ago and he has progressively had recurrent ulcers and some episodes of cellulitis. He has been applying cortisone cream and sprays to the area as recommended however no significant improvement. There is significant tenderness around the ulcers. He denies any discharge. Also has a sense of the most prominent between the abdominal folds. He feels well otherwise and denies chills, fever, loss of appetite, nausea, vomiting or change in his bowel habit. Progress of Wound: Improving. Cellulitis has resolved. - Physical Exam Vital Signs Temp Pulse Resp BP 98 F 78 18 154/72 H 08/10/17 12:53 08/10/17 12:53 08/10/17 12:53 08/10/17 12:53 General: Alert, Oriented x3, Cooperative, No apparent distress HEENT: Atraumatic, Normocephalic Oral: Moist Mucosa Neck: Supple Lungs: Normal air movement Cardiovascular: Regular rate Abdomen: Non Tender, Obese Extremities: No cyanosis Wound Measurements and Assessment WC - Nurse 1 - General Ulcer Measurement Start: 07/13/17 11:58 Freq: Status: Active Protocol: Activity Type Activity Date Activity User E-Sign Co-Sign Detail Recorded Client Recorded Date Recorded By Document 08/10/17 12:53 RB [id number] 08/10/17 13:03 RB 08/10/17 12:53 Wound Center Nurse 1 [Ulcer Assessment] #5 RT LATERAL ABDOMINAL FOLD -Combined with other wound No -Current Size (cm) - Length 0.1 -Current Size (cm) - Width 0.1 -Current Size (cm) - Depth 0.1 -Total Square Cm 0.01 -Photo Taken No -Tunneling No -Undermining/Tunneling No -Circular Undermining No -Exudate Amt None Present (0 %) -Wound Margin Distinct, Outline Attached -Granulation Amt Large (67-100%) -Granulation Quality Fishtail -Slough/Fibrin No -Structure Exposed N/A -Texture (Nesha-wound Skin Appearance) Assessed Excoriation -Moisture (Nesha-wound Skin Appearance Assessed ) -Color (Nesha-wound Skin Appearance) Assessed -Temperature (Nesha-wound Skin No Abnormality Appearance) (Pt Warm) -Tenderness on Palpation (Nesha-wound No Skin Appearance) -Ulcer Cleansing Rinsed/ Irrigated with Saline -Foul Odor after Cleansing No #4 RT MEDIAL ABDOMINAL FOLD -Combined with other wound No -Current Size (cm) - Length 0.1 -Current Size (cm) - Width 0.1 -Current Size (cm) - Depth 0.1 -Total Square Cm 0.01 -Photo Taken No -Tunneling No -Undermining/Tunneling No -Circular Undermining No -Exudate Amt None Present (0 %) -Wound Margin Distinct, Outline Attached -Granulation Amt Large (67-100%) -Granulation Quality Fishtail -Slough/Fibrin No -Necrosis Amt None Present (0 %) -Structure Exposed N/A -Texture (Nesha-wound Skin Appearance) Assessed Excoriation -Moisture (Nesha-wound Skin Appearance Assessed ) -Color (Nesha-wound Skin Appearance) Assessed -Temperature (Nesha-wound Skin No Abnormality Appearance) (Pt Warm) -Tenderness on Palpation (Nesha-wound No Skin Appearance) -Ulcer Cleansing Rinsed/ Irrigated with Saline -Foul Odor after Cleansing No #3 RLQ -Combined with other wound No -Current Size (cm) - Length 1.5 -Current Size (cm) - Width 2 -Current Size (cm) - Depth 0.1 -Total Square Cm 3.0 -Photo Taken No -Tunneling No -Undermining/Tunneling No -Circular Undermining No -Classification - Thickness Full Thickness without Exposed Support Structure -Exudate Amt Small (1-33%) -Exudate Type Serosanguineous -Wound Margin Distinct, Outline Attached -Granulation Amt Large (67-100%) -Granulation Quality Fishtail -Slough/Fibrin Yes -Necrosis Amt Small (1-33%) -Necrotic Tissue Type Adherent Slough -Structure Exposed N/A -Texture (Nesha-wound Skin Appearance) Assessed Excoriation -Moisture (Nesha-wound Skin Appearance Assessed ) -Color (Nesha-wound Skin Appearance) Assessed -Temperature (Nesha-wound Skin No Abnormality Appearance) (Pt Warm) -Tenderness on Palpation (Nesha-wound No Skin Appearance) -Ulcer Cleansing Rinsed/ Irrigated with Saline -Foul Odor after Cleansing No -Anesthetic Used 4% Lidocaine Solution #1 LLQ -Combined with other wound No -Current Size (cm) - Length 1.7 -Current Size (cm) - Width 1.1 -Current Size (cm) - Depth 0.1 -Total Square Cm 1.87 -Photo Taken No -Tunneling No -Undermining/Tunneling No -Circular Undermining No -Classification - Thickness Full Thickness without Exposed Support Structure -Exudate Amt Small (1-33%) -Exudate Type Serosanguineous -Wound Margin Distinct, Outline Attached -Granulation Amt Medium (34-66%) -Granulation Quality Fishtail -Necrosis Amt Small (1-33%) -Necrotic Tissue Type Adherent Slough -Structure Exposed N/A -Texture (Nesha-wound Skin Appearance) Assessed Excoriation -Moisture (Nesha-wound Skin Appearance Assessed ) -Color (Nesha-wound Skin Appearance) Assessed -Temperature (Nesha-wound Skin No Abnormality Appearance) (Pt Warm) -Tenderness on Palpation (Nesha-wound No Skin Appearance) -Ulcer Cleansing Rinsed/ Irrigated with Saline -Foul Odor after Cleansing No -Anesthetic Used 4% Lidocaine Solution WC - Nurse 2 - General Ulcer CM Notes Start: 07/13/17 11:58 Freq: Status: Active Protocol: Activity Type Activity Date Activity User E-Sign Co-Sign Detail Recorded Client Recorded Date Recorded By Document 08/10/17 13:14 DV [id number] 08/10/17 13:18 DV 08/10/17 13:14 Wound Center Nurse 2 [Procedure/Treatment] #5 RT LATERAL ABDOMINAL FOLD -Time 13:17 -Correct Patient Yes -Procedure Performed No -Post Debridement Size (cm) - Length 0 -Post Debridement Size (cm) - Width 0 -Post Debridement Size (cm) - Depth 0 -Total Square Cm 0 -Wound/Ulcer Outcome Healed- Epithelialized #4 RT MEDIAL ABDOMINAL FOLD -Time 13:17 -Correct Patient Yes -Procedure Performed No -Post Debridement Size (cm) - Length 0 -Post Debridement Size (cm) - Width 0 -Post Debridement Size (cm) - Depth 0 -Total Square Cm 0 -Wound/Ulcer Outcome Healed- Epithelialized #3 RLQ -Time 13:16 -Correct Patient Yes -Correct Side, Site, Position Yes -Correct Procedure Yes -Procedure Performed Yes -Type of Procedure Debridement -Clinical Debridement Subcutaneous -Post Debridement Size (cm) - Length 1.4 -Post Debridement Size (cm) - Width 2.0 -Post Debridement Size (cm) - Depth 0.1 -Total Square Cm 2.80 -Wound/Ulcer Outcome Not Healed #1 LLQ -Time 13:15 -Correct Patient Yes -Correct Side, Site, Position Yes -Correct Procedure Yes -Procedure Performed Yes -Type of Procedure Debridement -Clinical Debridement Subcutaneous -Post Debridement Size (cm) - Length 1.0 -Post Debridement Size (cm) - Width 1.5 -Post Debridement Size (cm) - Depth 0.1 -Total Square Cm 1.50 -Wound/Ulcer Outcome Not Healed -Ulcer Cleansing Rinsed/ Irrigated with Saline -Foul Odor after Cleansing No -Bioengineered Tissue No -Bleeding Controlled with Pressure -Treatment Response Procedure Tolerated Well [See Physician Procedure note for Specifics] Pain Scale: 0-10 Numeric [Pain] -Is Patient Pain Free? Yes Musculoskeletal: No Muscle Wasting Neurological: Cranial nerves II-XII grossly intact Psych/Mental Status: Normal Affect Debridement Note Post-Debridement Measurements/Treatment WC - Nurse 2 - General Ulcer CM Notes Start: 07/13/17 11:58 Freq: Status: Active Protocol: Activity Type Activity Date Activity User E-Sign Co-Sign Detail Recorded Client Recorded Date Recorded By Document 07/13/17 13:40 DV [id number] 07/13/17 21:25 DV Document 07/20/17 12:53 DV [id number] 07/20/17 12:58 DV Document 07/27/17 12:45 DV [id number] 07/27/17 12:50 DV Document 08/03/17 12:54 DV [id number] 08/03/17 12:58 DV Document 08/10/17 13:14 DV [id number] 08/10/17 13:18 DV 07/13/17 07/20/17 07/27/17 13:40 12:53 12:45 Wound Center Nurse 2 #5 RT LATERAL ABDOMINAL FOLD -Time 13:40 12:53 12:47 -Correct Patient Yes Yes Yes -Correct Side, Site, Position Yes Yes Yes -Correct Procedure Yes Yes Yes -Procedure Performed Yes Yes Yes -Type of Procedure Debridement Debridement Debridement -Clinical Debridement Subcutaneous Subcutaneous Subcutaneous -Post Debridement Size (cm) - Length 1.5 0.9 0.5 -Post Debridement Size (cm) - Width 1.5 0.5 0.9 -Post Debridement Size (cm) - Depth 0.1 0.1 0.1 -Total Square Cm 2.25 0.45 0.45 -Wound/Ulcer Outcome Not Healed Not Healed Not Healed -Ulcer Cleansing Rinsed/ Rinsed/ Irrigated with Irrigated with Saline Saline -Foul Odor after Cleansing No No -Bioengineered Tissue No No -Bleeding Controlled with Pressure NA -Treatment Response Procedure Procedure Tolerated Well Tolerated Well #4 RT MEDIAL ABDOMINAL FOLD -Time 13:40 12:54 12:47 -Correct Patient Yes Yes Yes -Correct Side, Site, Position Yes Yes Yes -Correct Procedure Yes Yes Yes -Procedure Performed Yes Yes Yes -Type of Procedure Debridement Debridement Debridement -Clinical Debridement Subcutaneous Subcutaneous Subcutaneous -Post Debridement Size (cm) - Length 1.0 0.8 0.7 -Post Debridement Size (cm) - Width 1.5 0.9 1.0 -Post Debridement Size (cm) - Depth 0.2 0.2 0.1 -Total Square Cm 1.50 0.72 0.70 -Wound/Ulcer Outcome Not Healed Not Healed Not Healed -Ulcer Cleansing Rinsed/ Rinsed/ Rinsed/ Irrigated with Irrigated with Irrigated with Saline Saline Saline -Foul Odor after Cleansing No No No -Bioengineered Tissue No No No -Bleeding Controlled with Pressure Pressure NA -Treatment Response Procedure Procedure Procedure Tolerated Well Tolerated Well Tolerated Well #3 RLQ -Time 13:40 12:55 12:45 -Correct Patient Yes Yes Yes -Correct Side, Site, Position Yes Yes Yes -Correct Procedure Yes Yes Yes -Procedure Performed Yes Yes Yes -Type of Procedure Debridement Debridement Debridement -Clinical Debridement Subcutaneous Subcutaneous Subcutaneous -Post Debridement Size (cm) - Length 2.7 2.9 1.6 -Post Debridement Size (cm) - Width 4.5 4.8 3.3 -Post Debridement Size (cm) - Depth 0.2 0.1 0.1 -Total Square Cm 12.15 13.92 5.28 -Wound/Ulcer Outcome Not Healed Not Healed Not Healed -Ulcer Cleansing Rinsed/ Rinsed/ Rinsed/ Irrigated with Irrigated with Irrigated with Saline Saline Saline -Foul Odor after Cleansing No No No -Bioengineered Tissue No No No -Bleeding Controlled with Pressure Pressure NA -Treatment Response Procedure Procedure Procedure Tolerated Well Tolerated Well Tolerated Well #2 LEFT ABDOMINAL FOLD -Time 13:40 12:55 -Correct Patient Yes Yes -Correct Side, Site, Position Yes -Correct Procedure Yes -Procedure Performed Yes No -Type of Procedure Debridement -Clinical Debridement Subcutaneous -Post Debridement Size (cm) - Length 0.4 0 -Post Debridement Size (cm) - Width 1.0 0 -Post Debridement Size (cm) - Depth 0.1 0 -Total Square Cm 0.40 0 -Wound/Ulcer Outcome Not Healed Healed- Epithelialized -Ulcer Cleansing Rinsed/ Irrigated with Saline -Foul Odor after Cleansing No -Bioengineered Tissue No -Bleeding Controlled with Pressure -Treatment Response Procedure Tolerated Well #1 LLQ -Time 13:40 12:56 12:46 -Correct Patient Yes Yes Yes -Correct Side, Site, Position Yes Yes Yes -Correct Procedure Yes Yes Yes -Procedure Performed Yes Yes Yes -Type of Procedure Debridement Debridement Debridement -Clinical Debridement Subcutaneous Subcutaneous Subcutaneous -Post Debridement Size (cm) - Length 1.8 1.9 1.7 -Post Debridement Size (cm) - Width 3.2 2.4 2.4 -Post Debridement Size (cm) - Depth 0.2 0.1 0.1 -Total Square Cm 5.76 4.56 4.08 -Wound/Ulcer Outcome Not Healed Not Healed Not Healed -Ulcer Cleansing Rinsed/ Rinsed/ Rinsed/ Irrigated with Irrigated with Irrigated with Saline Saline Saline -Foul Odor after Cleansing No No No -Bioengineered Tissue No No No -Bleeding Controlled with Pressure Pressure NA -Treatment Response Procedure Procedure Procedure Tolerated Well Tolerated Well Tolerated Well Pain Scale: 0-10 Numeric Is Patient Pain Free? No Yes Yes LOWER ABD -Description Sharp Burning -Intensity 6 -Duration (hours) Acute -Pain Behavior Facial Grimacing -Pain Aggravating Factors ADL's Changing Position Exercise/ Activity Sitting Walking Debridement -Alleviating Factors/Interventions None -Effectiveness of Alleviating Factor/ Not effective Intervention 08/03/17 08/10/17 12:54 13:14 Wound Center Nurse 2 #5 RT LATERAL ABDOMINAL FOLD -Time 12:54 13:17 -Correct Patient Yes Yes -Correct Side, Site, Position Yes -Correct Procedure Yes -Procedure Performed Yes No -Type of Procedure Debridement -Clinical Debridement Subcutaneous -Post Debridement Size (cm) - Length 0.4 0 -Post Debridement Size (cm) - Width 0.6 0 -Post Debridement Size (cm) - Depth 0.1 0 -Total Square Cm 0.24 0 -Wound/Ulcer Outcome Not Healed Healed- Epithelialized -Ulcer Cleansing Rinsed/ Irrigated with Saline -Foul Odor after Cleansing No -Bioengineered Tissue No -Bleeding Controlled with Pressure -Treatment Response Procedure Tolerated Well #4 RT MEDIAL ABDOMINAL FOLD -Time 12:55 13:17 -Correct Patient Yes Yes -Correct Side, Site, Position Yes -Correct Procedure Yes -Procedure Performed Yes No -Type of Procedure Debridement -Clinical Debridement Subcutaneous -Post Debridement Size (cm) - Length 0.3 0 -Post Debridement Size (cm) - Width 0.3 0 -Post Debridement Size (cm) - Depth 0.1 0 -Total Square Cm 0.09 0 -Wound/Ulcer Outcome Not Healed Healed- Epithelialized -Ulcer Cleansing Rinsed/ Irrigated with Saline -Foul Odor after Cleansing No -Bioengineered Tissue No -Bleeding Controlled with Pressure -Treatment Response Procedure Tolerated Well #3 RLQ -Time 12:57 13:16 -Correct Patient Yes Yes -Correct Side, Site, Position Yes Yes -Correct Procedure Yes Yes -Procedure Performed Yes Yes -Type of Procedure Debridement Debridement -Clinical Debridement Subcutaneous Subcutaneous -Post Debridement Size (cm) - Length 1.0 1.4 -Post Debridement Size (cm) - Width 3.0 2.0 -Post Debridement Size (cm) - Depth 0.1 0.1 -Total Square Cm 3.00 2.80 -Wound/Ulcer Outcome Not Healed Not Healed -Ulcer Cleansing Rinsed/ Irrigated with Saline -Foul Odor after Cleansing No -Bioengineered Tissue No -Bleeding Controlled with Pressure -Treatment Response Procedure Tolerated Well #2 LEFT ABDOMINAL FOLD -Time -Correct Patient -Correct Side, Site, Position -Correct Procedure -Procedure Performed -Type of Procedure -Clinical Debridement -Post Debridement Size (cm) - Length -Post Debridement Size (cm) - Width -Post Debridement Size (cm) - Depth -Total Square Cm -Wound/Ulcer Outcome -Ulcer Cleansing -Foul Odor after Cleansing -Bioengineered Tissue -Bleeding Controlled with -Treatment Response #1 LLQ -Time 12:57 13:15 -Correct Patient Yes Yes -Correct Side, Site, Position Yes Yes -Correct Procedure Yes Yes -Procedure Performed Yes Yes -Type of Procedure Debridement Debridement -Clinical Debridement Subcutaneous Subcutaneous -Post Debridement Size (cm) - Length 1.5 1.0 -Post Debridement Size (cm) - Width 1.9 1.5 -Post Debridement Size (cm) - Depth 0.1 0.1 -Total Square Cm 2.85 1.50 -Wound/Ulcer Outcome Not Healed Not Healed -Ulcer Cleansing Rinsed/ Rinsed/ Irrigated with Irrigated with Saline Saline -Foul Odor after Cleansing No No -Bioengineered Tissue No No -Bleeding Controlled with Pressure Pressure -Treatment Response Procedure Procedure Tolerated Well Tolerated Well Pain Scale: 0-10 Numeric Is Patient Pain Free? Yes Yes LOWER ABD -Description -Intensity -Duration (hours) -Pain Behavior -Pain Aggravating Factors -Alleviating Factors/Interventions -Effectiveness of Alleviating Factor/ Intervention Wound debrided: Left sided abdominal wound ( Superior ) Wound Grade/Stage: Stage II Type of Debridement: Excisional debridement Anesthesia Used: 4% Lidocaine Solution Depth: Down to and including healthy tissue, in the subcutaneous layer Percentage of wound debrided: 100 Instrument Used: 5mm curette Tissue Removed: Slough and devitalized tissue. Severity: Fat Layer Exposed Amount of bleeding with debridement: Mild Bleeding Controlled with: Pressure Patient tolerated procedure well - Additional Wound Wound debrided: Right lower abdominal wound ( Superior ) Wound Grade/Stage: Stage II Type of Debridement: Excisional debridement Anesthesia Used: 4% Lidocaine Solution Depth: Down to and including healthy tissue, in the subcutaneous layer Percentage of wound debrided: 100 Instrument Used: 5mm curette Tissue Removed: Slough and devitalized tissue Severity: Fat Layer Exposed Amount of bleeding with debridement: Mild Bleeding Controlled with: Pressure Patient tolerated procedure: Patient tolerated procedure well Assessment/Plan Active Problems Intertriginous dermatitis associated with moisture (Acute) Type 2 diabetes mellitus (Acute) Morbid obesity (Acute) Skin ulcer of abdominal wall with fat layer exposed (Acute) Assessment: As stated above Plan: Wounds continue to show good improvement. Abdominal wall cellulitis has now resolved. Debridement done as documented above, procedure was well tolerated. Continue Fibricol daily with adaptic over top to all ulcers. Continue antifungal powder to intertrigo areas. Optimal blood sugar control. Increased protein supplements/dietary intake. Follow-up in 1 week. This note was generated with [employer] dictation software. It may contain incorrect words, spelling, and punctuation that were not noted in checking the note before signing.
== END 2017-08-10 23:59 ==
LOC: WC 12:15
PROVIDERS: Visit Provider Internal Medicine
DX: L30.4 Erythema intertrigo (principal); L98.492 Non-pressure chronic ulcer of skin of other sites with fat layer exposed; E11.9 Type 2 diabetes mellitus without complications; E66.01 Morbid (severe) obesity due to excess calories; L03.311 Cellulitis of abdominal wall
CPT/HCPCS: 11042; 11045; 80053; 83036; 84134; 85027; 85652; 99203; G0463

== ENCOUNTER 2017-08-31 09:50 | Outpatient (RCR) | payer MEDICARE, OTHER, SELFPAY ==
[2017-08-11 01:05] VITALS: BP 154/72; PULSE 78; RESP 18; TEMP 36.6
[2017-08-31 11:26] VITALS: BP 150/66; PULSE 100; RESP 16; TEMP 36.9
--- NOTE | 2017-08-31 12:17 | PCM.WC.PN ---
(1) Intertriginous dermatitis associated with moisture Status: Acute Current Visit: Yes Code(s): L30.4 - Erythema intertrigo (2) Morbid obesity Status: Acute Current Visit: Yes Code(s): E66.01 - Morbid (severe) obesity due to excess calories (3) Skin ulcer of abdominal wall with fat layer exposed Status: Acute Current Visit: Yes Code(s): L98.492 - Non-pressure chronic ulcer of skin of other sites with fat layer exposed (4) Type 2 diabetes mellitus Status: Acute Current Visit: Yes Code(s): E11.9 - Type 2 diabetes mellitus without complications Type of Wound Date of Service: 08/31/17 Chief Complaint: Abdominal wall ulcers History of Wound: Mr. 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 Initial episode was said to be about 18 months ago and he has progressively had recurrent ulcers and some episodes of cellulitis. He has been applying cortisone cream and sprays to the area as recommended however no significant improvement. There is significant tenderness around the ulcers. He denies any discharge. Also has a sense of the most prominent between the abdominal folds. He feels well otherwise and denies chills, fever, loss of appetite, nausea, vomiting or change in his bowel habit. Progress of Wound: Healed. - Physical Exam Vital Signs Temp Pulse Resp BP 98.4 F 100 16 150/66 H 08/31/17 11:26 08/31/17 11:26 08/31/17 11:26 08/31/17 11:26 General: Alert, Oriented x3, Cooperative, No apparent distress HEENT: Atraumatic Oral: Moist Mucosa Neck: Supple Lungs: Normal air movement Cardiovascular: Regular rate Abdomen: Soft, Non Tender, Obese Extremities: No cyanosis Wound Measurements and Assessment WC - Nurse 1 - General Ulcer Measurement Start: 08/31/17 11:25 Freq: Status: Active Protocol: Activity Type Activity Date Activity User E-Sign Co-Sign Detail Recorded Client Recorded Date Recorded By Document 08/31/17 11:26 [facility] [id number] 08/31/17 11:40 BM 08/31/17 11:26 Wound Center Nurse 1 [Ulcer Assessment] #3 RLQ -Combined with other wound No -Current Size (cm) - Length 0 -Current Size (cm) - Width 0 -Current Size (cm) - Depth 0 -Total Square Cm 0 -Date of Last Picture (Recall this 08/31/17 field) -Epithelialization Large 67-100% #1 LLQ -Combined with other wound No -Current Size (cm) - Length 0 -Current Size (cm) - Width 0 -Current Size (cm) - Depth 0 -Total Square Cm 0 -Date of Last Picture (Recall this 08/31/17 field) -Photo Taken Yes -Epithelialization Large 67-100% Musculoskeletal: No Muscle Wasting Neurological: Cranial nerves II-XII grossly intact Psych/Mental Status: Normal Affect Debridement Note No debridement was completed today Assessment/Plan Active Problems Intertriginous dermatitis associated with moisture (Acute) Type 2 diabetes mellitus (Acute) Morbid obesity (Acute) Skin ulcer of abdominal wall with fat layer exposed (Acute) Assessment: As stated above Plan: Wounds has healed. No debridement done today. Continue adaptic and guaze over superior left and right abdominal area for 2 week. Continue antifungal powder to intertrigo areas. Optimal blood sugar control. Increased protein supplements/dietary intake. Discharged from the wound clinic. Advised to call with any qeustions or concerns. This note was generated with [employer] dictation software. It may contain incorrect words, spelling, and punctuation that were not noted in checking the note before signing.
--- NOTE | 2017-08-31 12:20 | PN.PCM_ITS ---
(1) Intertriginous dermatitis associated with moisture Status: Acute Current Visit: Yes Code(s): L30.4 - Erythema intertrigo (2) Morbid obesity Status: Acute Current Visit: Yes Code(s): E66.01 - Morbid (severe) obesity due to excess calories (3) Skin ulcer of abdominal wall with fat layer exposed Status: Acute Current Visit: Yes Code(s): L98.492 - Non-pressure chronic ulcer of skin of other sites with fat layer exposed (4) Type 2 diabetes mellitus Status: Acute Current Visit: Yes Code(s): E11.9 - Type 2 diabetes mellitus without complications Type of Wound Date of Service: 08/31/17 Chief Complaint: Abdominal wall ulcers History of Wound: Mr. 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 Initial episode was said to be about 18 months ago and he has progressively had recurrent ulcers and some episodes of cellulitis. He has been applying cortisone cream and sprays to the area as recommended however no significant improvement. There is significant tenderness around the ulcers. He denies any discharge. Also has a sense of the most prominent between the abdominal folds. He feels well otherwise and denies chills, fever, loss of appetite, nausea, vomiting or change in his bowel habit. Progress of Wound: Healed. - Physical Exam Vital Signs Temp Pulse Resp BP 98.4 F 100 16 150/66 H 08/31/17 11:26 08/31/17 11:26 08/31/17 11:26 08/31/17 11:26 General: Alert, Oriented x3, Cooperative, No apparent distress HEENT: Atraumatic Oral: Moist Mucosa Neck: Supple Lungs: Normal air movement Cardiovascular: Regular rate Abdomen: Soft, Non Tender, Obese Extremities: No cyanosis Wound Measurements and Assessment WC - Nurse 1 - General Ulcer Measurement Start: 08/31/17 11:25 Freq: Status: Active Protocol: Activity Type Activity Date Activity User E-Sign Co-Sign Detail Recorded Client Recorded Date Recorded By Document 08/31/17 11:26 [facility] [id number] 08/31/17 11:40 BM 08/31/17 11:26 Wound Center Nurse 1 [Ulcer Assessment] #3 RLQ -Combined with other wound No -Current Size (cm) - Length 0 -Current Size (cm) - Width 0 -Current Size (cm) - Depth 0 -Total Square Cm 0 -Date of Last Picture (Recall this 08/31/17 field) -Epithelialization Large 67-100% #1 LLQ -Combined with other wound No -Current Size (cm) - Length 0 -Current Size (cm) - Width 0 -Current Size (cm) - Depth 0 -Total Square Cm 0 -Date of Last Picture (Recall this 08/31/17 field) -Photo Taken Yes -Epithelialization Large 67-100% Musculoskeletal: No Muscle Wasting Neurological: Cranial nerves II-XII grossly intact Psych/Mental Status: Normal Affect Debridement Note No debridement was completed today Assessment/Plan Active Problems Intertriginous dermatitis associated with moisture (Acute) Type 2 diabetes mellitus (Acute) Morbid obesity (Acute) Skin ulcer of abdominal wall with fat layer exposed (Acute) Assessment: As stated above Plan: Wounds has healed. No debridement done today. Continue adaptic and guaze over superior left and right abdominal area for 2 week. Continue antifungal powder to intertrigo areas. Optimal blood sugar control. Increased protein supplements/dietary intake. Discharged from the wound clinic. Advised to call with any qeustions or concerns. This note was generated with [employer] dictation software. It may contain incorrect words, spelling, and punctuation that were not noted in checking the note before signing.
== END 2017-09-09 23:59 ==
LOC: WC 09:50
PROVIDERS: Visit Provider Internal Medicine
DX: E11.622 Type 2 diabetes mellitus with other skin ulcer (principal); L30.4 Erythema intertrigo; E66.01 Morbid (severe) obesity due to excess calories; Z68.41 Body mass index [BMI] 40.0-44.9, adult; Z71.3 Dietary counseling and surveillance; L98.492 Non-pressure chronic ulcer of skin of other sites with fat layer exposed
CPT/HCPCS: 11042; 99212; G0463